=== PATIENT | male | born 1960 | race Caucasian/White ===

== ENCOUNTER 2018-11-20 07:30 | Inpatient (IN) | payer MEDICAID, OTHER ==
--- NOTE | 2018-11-07 18:31 | HP ---
HISTORY AND PHYSICAL: DATE OF ADMISSION/SURGERY: 11/20/18 DATE OF OFFICE VISIT: 11/07/18 SURGEON: Patti Harvey MD * (DICTATED BY JADON CHURCHILL) PROCEDURE: Left total hip arthroplasty. CHIEF COMPLAINT: Left hip pain. HISTORY OF PRESENT ILLNESS: Mr. Solo is a 58-year-old gentleman with continued complaints of left hip pain. He has failed conservative treatment and elected to proceed with a left total hip arthroplasty. PAST MEDICAL HISTORY: Hypertension, hepatitis C, depression, anxiety, and history of cocaine and alcohol addiction. PAST SURGICAL HISTORY: Appendectomy and left hand surgery x2. CURRENT MEDICATIONS: 1. Amlodipine 10 mg daily. 2. Trazodone 150 mg. 3. Morphine sulfate 20 mg twice a day. 4. Oxycodone 10 mg 3 times a day. 5. Naproxen 500 mg twice a day. 6. Multivitamin. ALLERGIES: No known drug allergies. FAMILY HISTORY: Cancer and cerebral hemorrhage. SOCIAL HISTORY: He is a 58-year-old gentleman, lives alone. He smokes about 2 packs of cigarettes a week as well as occasional marijuana and uses occasional alcohol. REVIEW OF SYSTEMS: A complete 14-point review of systems was reviewed with the patient. It was positive for history of hepatitis C in 2007. He denies history of DVT, PE, HIV, or anesthesia problems. PHYSICAL EXAMINATION GENERAL: He is well developed, well nourished, in no acute distress. VITAL SIGNS: He stands 68 inches tall, weighs 147 pounds. His blood pressure is 130/76 and his heart rate is 64. HEENT: Normocephalic, atraumatic. NECK: Supple. No palpable lymph nodes. PULMONARY: The lungs are clear to auscultation bilaterally. CARDIO: Regular rate and rhythm. Strong S1, S2. ABDOMEN: Soft, nontender, nondistended. NEUROLOGICAL: He is alert and oriented x3. MUSCULOSKELETAL: Left lower extremity: The skin is intact. There are no open wounds or abrasions. He walks with an antalgic-type gait favoring his left hip and has decreased internal and external rotation of the left hip. He has a 2+ dorsalis pedis pulse, intact sensation and his lower extremity muscle group strengths are intact at 5/5. ASSESSMENT AND PLAN: Mr. Solo is a 58-year-old gentleman with end-stage osteoarthritis of the left hip. He has failed conservative treatment and elected to proceed with a left total hip arthroplasty. The surgery is scheduled for 11/20/[address] Harvey discussed the risks and benefits of the surgery at today's visit and all of his questions were answered. He will follow up with Dr. Harvey 2 weeks after the surgery. JADON CHURCHILL [id number]/[facility] #: [id number] MTDPepe
[2018-11-26] MEDS ORDERED: Buffered Lidocaine 1% SYRIN* 1 ML/SYRINGE INTRADERM ONE (16:25)
[2018-11-27] MEDS ORDERED: Lactated Ringers 1000 ML Bag* 1,000 ML IV SCH (06:00)
[2018-11-27] MEDS ORDERED: Famotidine IV* 10 MG/ML 2 ML (20 mg) IV ONE (06:00)
--- OUTSIDE RECORDS SUMMARY | 2018-11-27 10:59 | XMS REPORT | Continuity of Care Document ---
:1960 External Reference #:[id number] Author Name Lidya Gunter M.D. Address [address] [facility] [address] [facility] [address] [place] [address] Care Team Providers Name Role Phone Lidya Gunter M.D. 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 Unavailable Payers Type Date Identification Numbers Payment Provider Subscriber Effective: Policy Number: [id number] Formerly [facility] Roberto Carlos Stevenserin 2018 PayID: [id number] [place] [address] Policy Number: [id number] Medicaid/[employer] Roberto Carlos Solo PayID: [id number] [address] [place] [address] Expires: 2018 Policy Number: [id number] Formerly [facility] Roberto Carlos Martinez erin PayID: [id number] [place] [address] Advance Directives Description No Information Available Problems Description No Information Family History Date Family Member(s) Problem(s) Comments Father due to At Age 50 () Father Alcoholism Father due to Cerebral Hemmorhage () Mother due to At Age 74 () Mother due to Cervical Cancer () First Son 27 First Son No Current Problems Second Son 26 Second Son No Current Problems Third Son 19 Third Son Asthma First Daughter 26 First Daughter No Current Problems Second Daughter 21 First Brother 49 First Brother No Current Problems Second Brother 52 Second Brother No Current Problems Social History Type Date Description Comments Sex Unknown Marital Status Legal Status: ETOH Use Denies alcohol use Tobacco Use Start: Unknown Patient is a current 3 TO 4 CIGARETTES A DAY smoker, smokes every day Smoking Status Reviewed: 11/13/18 Patient is a current 3 TO 4 CIGARETTES A DAY smoker, smokes every day Allergies, Adverse Reactions, Alerts Description No Known Drug Allergies Medications Medication Date Status Form Strength Qnty SIG Indications Ordering Provider Claritin 07/18/ Active Tablets 10mg 30tabs 1 by mouth J30.9 Jani, 2017 every day Lidya Del Rosario M.D. Lidocaine 11/13/ Active Cream 4% 90gm apply to M51.37 Jani, 2017 affected Lidya Del Rosario, area 3-4 M.DDelvin times daily Womens Daily 10/05/ Active Tablets 90tabs 1 by mouth E55.9 Jani Formula/Folic 2015 every day Lidya Del Rosario Acid/Calcium/Iro MLoan n Cyanocobalamin 09/06/ Active Solution 1000mcg/ML 1ml inject E53.9 Jani 2015 1000mcg Lidya Del Rosario today Luis A given to l deltoid-DR Moser Naproxen 03/27/ Active Tablets 500mg 180tab 1 tab by M54.5 Jani, 2015 s mouth Lidya Del Rosario, twice a M.D. day as needed M25.512 M15.9 Bupropion HCL 02/01/2016 Active Tablets ER 150mg 180tabs 1 by mouth F41.9 Jani, ER (SR) 12HR twice a Lidya Del Rosario, day M.D. F33.9 Trazodone HCL Active Tablets 150mg 90tabs 1 tab by F41.9 Jani, Lidya mouth every M., M.D. night F33.9 J44.9 Amlodipine Active Tablets 10mg 90tabs 1 by mouth I73.00 Jani Besylate every day Lidya Del Rosario M.D. Proair HFA Active Aerosol 108(90Bas 17gm inhale 2 J44.9 Jani e) puffs by Lidya Del Rosario, mcg/Act mouth every M.D. 4 hours if needed R06.02 Amoxicillin 01/03/ Hx Tablets 500mg 40tabs 2 by mouth J20.9 [facility], 2019 - twice a day [facility] M.D. 2019 Prednisone 10/23/ Hx Tablets 20mg 18tabs 3 tab by mouth J20.9 [facility], 2019 - daily 3 days, [facility], 11/02/ then 2 tab M.D. 2019 daily x 3 d , then 1 tab daily 3d Azithromycin 07/11/ Hx Tablets 250mg 6tabs z wesley uad J20.9 [facility], 2018 - mad ., M.D. 2018 Mucinex 07/11/ Hx Tablets ER 600mg 30tabs 1 tab by mouth J20.9 [facility], 2018 - 12HR twice a day [facility]., M.D. 2019 Azithromycin 01/03/ Hx Tablets 250mg 6tabs z [facility] J01.40 [facility], 2018 - [facility], M.D. 2017 Betamethasone 10/05/ Hx Cream 0.05% 45gm apply to L20.9 [facility], Dipropionate 2015 - affected [facility], 11/16/ area(arms and M.D. 2017 legs) three times a day as needed Diflucan 08/02/ Hx Tablets 100mg 20tabs 1 by mouth B35.6 [facility], 2015 - twice a day [facility], M.D. 2015 Lotrimin AF 08/02/ Hx Cream 1% 24gm apply to B35.6 [facility], 2015 - affected area [facility], 08/09/ three times a M.D. 2016 day Vitamin D-3 05/04/ Hx Capsules 1000Un 90caps 1 by mouth E55.9 [facility], 2015 - it every day [facility], 10/05/ M.D. 2015 Amoxicillin 04/24/ Hx Tablets 500mg 40tabs 2 by mouth H66.93 [facility], 2015 - twice a day [facility], 05/04/ M.D. 2015 Chantix 03/27/ Hx Tablets 1mg 60tabs 1 by mouth F17.21 [facility], 2016 - twice a day 0 Ahmad M., 09/20/ M.D. 2015 Vitamin D3 12/22/ Hx Capsules 1000Un 90caps 1 by mouth E55.9 Jani, 2016 - it every day Lidya M., M.D. 2015 Oxycodone HCL / Hx Tablets 10mg 120tab 1 tab by mouth M25.51 Jani , 0000 - s four times a 2 Ahmad M., M.D. 2016 M15.9 M54.5 Bupropion HCL - Hx Tablets ER 100mg 60tabs 1 by mouth F41.9 Jani, ER (SR) 02/01/2016 12HR twice a Ahmad M., M.DDelvin F33.9 Morphine - Hx Caps ER 20mg 30caps 1 tab by M54.5 Jani, Ahmad Sulfate ER 08/30/2017 24HR mouth twice MMiguel Ángel HargorveD. a day M15.9 M25.512 Diazepam - Hx Tablets 10mg 15tabs 1 tab by mouth F41.9 Jani , Ahmad 08/30/2017 twice a day as Luis A Del Rosario needed J44.9 Medications Administered in Office Medication Date Status Form Strength Qnty SIG Indications Ordering Provider B12 Administered Injection Jani, Pablo Del Rosario M.D. B12 Administered Injection Jani, Pablo Del Rosario M.D. Injection Administered Injection [place], Therap/Prophl/ 018 J[facility] Intradermal Administered Injection [place], [place] JADON Rg B12 Administered Injection Jani, 017 Lidya Del Rosario M.D. B12 Administered Injection Jani, 017 Lidya Del Rosario M.D. B12 Administered Injection Jani, Andressa Del Rosario M.D. B12 Administered Injection Jani, Andressa Del Rosario M.D. B12 Administered Injection WhiteAndressaP B12 Administered Injection Jani, 017 Lidya Del Rosario M.D. B12 Administered Injection Jani, 017 Lidya Del Rosario M.D. B12 Administered Injection White, 017 J[facility] B12 Administered Injection Jani, 017 Lidya Del Rosario M.D. B12 Administered Injection Jani, 017 Lidya Del Rosario M.D. B12 Administered Injection Jani, 017 Lidya Del Rosario M.D. B12 Administered Injection Jani, 017 Lidya Del Rosario M.D. B12 Administered Injection Jani, 017 Lidya Del Rosario M.D. B12 Administered Injection Jani, 016 Lidya Del Rosario M.D. B12 Administered Injection Jani, 016 Lidya Del Rosario M.D. B12 Administered Injection Jani, 016 Lidya Del Rosario M.D. Immunizations CPT Code Status Date Vaccine Lot # [id number] Given 07/18/2018 Flu Vaccine [id number] Given 06/18/2017 Flu Vaccine [id number] Given 08/02/2016 Flu Vaccine [id number] Given 09/20/2015 Flu Vaccine Vital Signs Date Vital Result Comment 11/13/2018 1:28pm BP Systolic 132 mmHg BP Diastolic 70 mmHg Height 69 inches 5'9" Weight 145.00 lb BMI (Body Mass Index) 21.4 kg/m2 Heart Rate 81 /min Respiratory Rate 16 /min 10/23/2018 2:55pm BP Systolic 128 mmHg BP Diastolic 62 mmHg Height 69 inches 5'9" Weight 143.00 lb BMI (Body Mass Index) 21.1 kg/m2 Heart Rate 122 /min Respiratory Rate 16 /min 09/10/2018 2:21pm BP Systolic 118 mmHg BP Diastolic 72 mmHg Height 69 inches 5'9" Weight 146.00 lb BMI (Body Mass Index) 21.6 kg/m2 Heart Rate 88 /min Respiratory Rate 16 /min 07/18/2018 9:42am BP Systolic 116 mmHg BP Diastolic 72 mmHg Height 69 inches 5'9" Weight 147.00 lb BMI (Body Mass Index) 21.7 kg/m2 Heart Rate 90 /min Body Temperature 99.1 F Respiratory Rate 22 /min 07/11/2018 1:08pm BP Systolic 120 mmHg BP Diastolic 72 mmHg Height 68 inches 5'8" Weight 148.00 lb BMI (Body Mass Index) 22.5 kg/m2 Heart Rate 98 /min Body Temperature 98.7 F Respiratory Rate 16 /min 03/31/2018 10:18am BP Systolic 144 mmHg BP Diastolic 78 mmHg Height 68 inches 5'8" Weight 147.00 lb BMI (Body Mass Index) 22.3 kg/m2 Heart Rate 105 /min Respiratory Rate 18 /min 01/16/2018 3:23pm BP Systolic 110 mmHg BP Diastolic 68 mmHg Height 68 inches 5'8" Weight 150.00 lb BMI (Body Mass Index) 22.8 kg/m2 Heart Rate 70 /min Respiratory Rate 18 /min 01/03/2018 8:06am BP Systolic 130 mmHg BP Diastolic 70 mmHg Height 68 inches 5'8" Weight 149.00 lb BMI (Body Mass Index) 22.7 kg/m2 Heart Rate 90 /min Respiratory Rate 18 /min 11/25/2017 3:25pm BP Systolic 120 mmHg BP Diastolic 62 mmHg Height 68 inches 5'8" Weight 154.00 lb BMI (Body Mass Index) 23.4 kg/m2 Heart Rate 82 /min Respiratory Rate 16 /min 11/13/2017 3:35pm BP Systolic 126 mmHg BP Diastolic 68 mmHg Height 69 inches 5'9" Weight 154.00 lb BMI (Body Mass Index) 22.7 kg/m2 Heart Rate 90 /min Respiratory Rate 18 /min 11/11/2017 3:46pm BP Systolic 110 mmHg BP Diastolic 70 mmHg Height 69 inches 5'9" Weight 154.00 lb BMI (Body Mass Index) 22.7 kg/m2 Heart Rate 73 /min Respiratory Rate 18 /min 08/30/2017 9:11am BP Systolic 110 mmHg BP Diastolic 72 mmHg Height 69 inches 5'9" Weight 161.00 lb BMI (Body Mass Index) 23.8 kg/m2 Heart Rate 105 /min Respiratory Rate 18 /min 08/16/2017 8:58am BP Systolic 128 mmHg BP Diastolic 72 mmHg Height 69 inches 5'9" Weight 158.00 lb BMI (Body Mass Index) 23.3 kg/m2 Heart Rate 93 /min Respiratory Rate 16 /min 08/02/2017 8:58am BP Systolic 110 mmHg BP Diastolic 68 mmHg Height 69 inches 5'9" Weight 157.00 lb BMI (Body Mass Index) 23.2 kg/m2 Heart Rate 18 /min Respiratory Rate 16 /min 07/19/2017 9:26am Height 69 inches 5'9" Weight 157.00 lb BMI (Body Mass Index) 23.2 kg/m2 07/16/2017 8:52am BP Systolic 110 mmHg BP Diastolic 62 mmHg Height 69 inches 5'9" Weight 158.00 lb BMI (Body Mass Index) 23.3 kg/m2 Heart Rate 95 /min Respiratory Rate 16 /min 07/05/2017 9:36am BP Systolic 122 mmHg BP Diastolic 78 mmHg Height 69 inches 5'9" Weight 160.00 lb BMI (Body Mass Index) 23.6 kg/m2 Heart Rate 110 /min Respiratory Rate 18 /min 06/18/2017 10:02am BP Systolic 126 mmHg BP Diastolic 74 mmHg Height 69 inches 5'9" Weight 161.00 lb BMI (Body Mass Index) 23.8 kg/m2 Heart Rate 80 /min Respiratory Rate 16 /min 05/30/2017 9:53am BP Systolic 124 mmHg BP Diastolic 78 mmHg Height 69 inches 5'9" Weight 162.00 lb BMI (Body Mass Index) 23.9 kg/m2 Heart Rate 75 /min Respiratory Rate 18 /min 05/16/2017 9:11am BP Systolic 122 mmHg BP Diastolic 64 mmHg Height 69 inches 5'9" Weight 160.00 lb BMI (Body Mass Index) 23.6 kg/m2 Heart Rate 80 /min Respiratory Rate 16 /min 05/03/2017 9:20am BP Systolic 124 mmHg BP Diastolic 64 mmHg Height 69 inches 5'9" Weight 164.00 lb BMI (Body Mass Index) 24.2 kg/m2 Heart Rate 84 /min Respiratory Rate 16 /min 04/19/2017 9:36am BP Systolic 118 mmHg BP Diastolic 62 mmHg Height 69 inches 5'9" Weight 161.00 lb BMI (Body Mass Index) 23.8 kg/m2 Heart Rate 68 /min Respiratory Rate 16 /min 04/05/2017 9:20am BP Systolic 130 mmHg BP Diastolic 70 mmHg Height 69 inches 5'9" Weight 160.00 lb BMI (Body Mass Index) 23.6 kg/m2 Heart Rate 76 /min Respiratory Rate 16 /min 03/06/2017 9:04am BP Systolic 122 mmHg BP Diastolic 68 mmHg Height 69 inches 5'9" Weight 160.00 lb BMI (Body Mass Index) 23.6 kg/m2 Heart Rate 102 /min Respiratory Rate 16 /min 02/04/2017 9:05am BP Systolic 118 mmHg BP Diastolic 76 mmHg Height 69 inches 5'9" Weight 157.00 lb BMI (Body Mass Index) 23.2 kg/m2 Heart Rate 68 /min Respiratory Rate 18 /min 01/03/2017 9:40am BP Systolic 118 mmHg BP Diastolic 78 mmHg Height 69 inches 5'9" Weight 162.00 lb BMI (Body Mass Index) 23.9 kg/m2 Heart Rate 91 /min Respiratory Rate 16 /min 12/06/2016 2:34pm BP Systolic 124 mmHg BP Diastolic 80 mmHg Height 69 inches 5'9" Weight 159.00 lb BMI (Body Mass Index) 23.5 kg/m2 Heart Rate 80 /min Respiratory Rate 16 /min 11/06/2016 11:31am BP Systolic 128 mmHg BP Diastolic 80 mmHg Height 69 inches 5'9" Weight 152.00 lb BMI (Body Mass Index) 22.4 kg/m2 Heart Rate 102 /min Respiratory Rate 16 /min 10/05/2016 8:57am BP Systolic 122 mmHg BP Diastolic 88 mmHg Height 69 inches 5'9" Weight 160.00 lb BMI (Body Mass Index) 23.6 kg/m2 Heart Rate 73 /min Respiratory Rate 20 /min 09/06/2016 11:28am BP Systolic 124 mmHg BP Diastolic 68 mmHg Height 69 inches 5'9" Weight 152.00 lb BMI (Body Mass Index) 22.4 kg/m2 Heart Rate 78 /min Respiratory Rate 16 /min 08/10/2016 9:40am BP Systolic 112 mmHg BP Diastolic 67 mmHg Height 69 inches 5'9" Weight 145.00 lb BMI (Body Mass Index) 21.4 kg/m2 Heart Rate 76 /min Respiratory Rate 20 /min 08/03/2016 9:16am BP Systolic 116 mmHg BP Diastolic 68 mmHg Height 69 inches 5'9" Weight 148.00 lb BMI (Body Mass Index) 21.9 kg/m2 Heart Rate 72 /min Respiratory Rate 18 /min 08/02/2016 11:34am BP Systolic 122 mmHg BP Diastolic 68 mmHg Height 69 inches 5'9" Weight 147.00 lb BMI (Body Mass Index) 21.7 kg/m2 Heart Rate 72 /min Respiratory Rate 20 /min 05/15/2016 2:42pm BP Systolic 116 mmHg BP Diastolic 62 mmHg Height 69 inches 5'9" Weight 143.00 lb BMI (Body Mass Index) 21.1 kg/m2 Heart Rate 78 /min Respiratory Rate 20 /min 04/24/2016 9:49am BP Systolic 118 mmHg BP Diastolic 64 mmHg Height 69 inches 5'9" Weight 143.00 lb BMI (Body Mass Index) 21.1 kg/m2 Heart Rate 78 /min Respiratory Rate 18 /min 04/11/2016 9:46am BP Systolic 112 mmHg BP Diastolic 72 mmHg Height 69 inches 5'9" Weight 143.00 lb BMI (Body Mass Index) 21.1 kg/m2 Heart Rate 72 /min Respiratory Rate 19 /min 03/27/2016 11:33am BP Systolic 110 mmHg BP Diastolic 62 mmHg Height 69 inches 5'9" Weight 142.00 lb BMI (Body Mass Index) 21.0 kg/m2 Heart Rate 80 /min Respiratory Rate 19 /min 03/13/2016 2:40pm BP Systolic 116 mmHg BP Diastolic 74 mmHg Height 69 inches 5'9" Weight 148.00 lb BMI (Body Mass Index) 21.9 kg/m2 Heart Rate 78 /min Respiratory Rate 18 /min 02/01/2016 2:20pm BP Systolic 122 mmHg BP Diastolic 83 mmHg Height 69 inches 5'9" Weight 154.00 lb BMI (Body Mass Index) 22.7 kg/m2 Heart Rate 111 /min Respiratory Rate 18 /min 12/23/2015 10:38am BP Systolic 108 mmHg BP Diastolic 77 mmHg Height 69 inches 5'9" Weight 146.00 lb BMI (Body Mass Index) 21.6 kg/m2 Heart Rate 86 /min Respiratory Rate 18 /min 12/16/2015 9:43am BP Systolic 114 mmHg BP Diastolic 78 mmHg Height 69 inches 5'9" Weight 148.00 lb BMI (Body Mass Index) 21.9 kg/m2 Heart Rate 80 /min Body Temperature 97.5 F Respiratory Rate 18 /min Results Test Date Facility Test Result H/L Range Note Hemoglobin A1c 07/18/2018 [facility] Hemoglobin A1c @ 4.9 % (4.0-6.0) 1 [address] [facility] (607)- - Est Average Glucose 94 mg/dL CBC With Diff 07/18/2018 [facility] WBC 5.3 10*3/uL (4.1-11.0) [facility] (607)- - RBC 4.60 10*6/uL (4.60-6.10) HGB 14.9 g/dL (13.5-18.0) HCT 43.9 % (41.0-53.0) MCV 95.4 fL High (80.0-95.0) MCH 32.5 pg High (27.0-32.0) MCHC 34.0 g/dL (32.0-36.0) RDW 13.2 % (10.5-14.5) PLT UNABLE TO REPORT <SEE NOTE> 10*3/uL (150-450) 2 MPV PENDING fL (7.1-10.7) Neut % 68.0 % (35.0-75.0) Lymph % 22.0 % (16.0-52.0) [place] % 7.0 % (0.0-8.0) Eos % 2.0 % (0.0-5.0) Baso % 1.0 % (0.0-4.0) Neut # 3.6 10*3/uL (1.8-7.7) Lymph # 1.2 10*3/uL (1.2-4.8) [place] # 0.4 10*3/uL (0.0-0.8) Eos # 0.1 10*3/uL (0.0-0.5) Baso # 0.1 10*3/uL (0.0-0.2) CMP 07/18/2018 [facility] Sodium 143 mmol/L (136-145) [facility] (607)- - Potassium 4.2 mmol/L (3.6-5.2) Chloride 108 mmol/L (100-108) Co2 30 mmol/L (22-31) Anion Gap 5 mmol/L Low (7-16) Urea Nitrogen 14 mg/dL (7-24) Creatinine 0.80 mg/dL (0.80-1.30) BUN/Creat Ratio 17.5 RATIO (10.0-20.0) Glucose 94 mg/dL (70-99) Calcium 9.1 mg/dL (8.4-10.2) Total Protein 6.7 g/dL (6.4-8.2) Albumin 4.0 g/dL (3.5-4.6) Globulin 2.7 g/dL (2.7-4.3) Alb/Glob Ratio 1.5 RATIO Alkaline Phosphatase 97 U/L (45-117) Bilirubin,Total 0.7 mg/dL (0.0-1.0) Ast (Sgot) 25 U/L (11-39) Alt (SGPT) 30 U/L (12-78) GFR >60 ml/min/1.73m2 (>59) GFR ( Amer) >60 ml/min/1.73m2 (>59) GFR Interpretation <SEE NOTE> 3 Lipid 07/18/2018 [facility] Cholesterol @ 115 mg/dL (0-200) [address] [facility] (607)- - Triglyceride @ 66 mg/dL (30-200) HDL Cholesterol @ 69 mg/dL (>40) 4 Chol/HDL Ratio 1.7 RATIO 5 LDL Chol (Calc) 33 mg/dL (<130) 6 Laboratory 07/18/2018 [facility] TSH,Ultrasensitive @ 0.377 (0.360- 4.170) test finding [address] [facility] mIU/L (607)- - 25 Hydroxy Vit D @ 51 ng/mL (31-100) 7 Hepatitis C AB @ POSITIVE (S/CO R <SEE NOTE> Abnormal (Neg) 8 Laboratory test 01/03/2018 [facility] TSH (Thyroid 0.66 mcIU/mL N 0.34-5.60 9 finding Stim Horm) Hepatitis C Rna Quant Undetected IU/mL Undetected 10 Vitamin D Total 25(Oh) 41.9 ng/mL N 20-50 11 Free T4 (Free Thyroxine) 1.08 ng/dL N 0.61-1.12 12 Hemoglobin A1c (Glyco HGB) 5.0 % N 4.0-5.6 13 Vitamin B12 318 pg/mL N 180-914 14 Folic Acid (Folate) > 20.00 ng/mL >3.99 15 Lipid Profile (Trig/Chol/HDL) 01/03/2018 [facility] Triglycerides 62 mg /dL 16 Cholesterol 122 mg/dL 17 HDL Cholesterol 58.2 mg/dL 18 LDL Cholesterol 51 mg/dL 19 Comp Metabolic Panel 01/03/2018 [facility] Sodium 139 mmol/L N 133- 145 Potassium 4.6 mmol/L N 3.5-5.0 Chloride 104 mmol/L N 101-111 Co2 Carbon Dioxide 26 mmol/L N 22-32 Anion Gap 9 mmol/L N 2-11 Glucose 85 mg/dL N 70-100 Blood Urea Nitrogen 18 mg/dL N 6-24 Creatinine 0.87 mg/dL N 0.67-1.17 BUN/Creatinine Ratio 20.7 High 8-20 Calcium 9.6 mg/dL N 8.6-10.3 Total Protein 6.7 g/dL N 6.4-8.9 Albumin 4.5 g/dL N 3.2-5.2 Globulin 2.2 g/dL N 2-4 Albumin/Globulin Ratio 2.0 N 1-3 Total Bilirubin 0.60 mg/dL N 0.2-1.0 Alkaline Phosphatase 79 U/L N 34-104 Alt 21 U/L N 7-52 Ast 22 U/L N 13-39 Egfr Non- 91.1 >60 Egfr 117.2 >60 20 CBC Auto Diff 01/03/2018 [facility] White Blood Count 8.2 10^3/uL N 3.5-10.8 Red Blood Count 4.72 10^6/uL N 4.0-5.4 Hemoglobin 14.9 g/dL N 14.0-18.0 Hematocrit 45 % N 42-52 Mean Corpuscular Volume 96 fL High 80-94 Mean Corpuscular Hemoglobin 32 pg High 27-31 Mean Corpuscular HGB Conc 33 g/dL N 31-36 Red Cell Distribution Width 13 % N 10.5-15 Platelet Count 210 10^3/uL N 150-450 Mean Platelet Volume 9 um3 N 7.4-10.4 Abs Neutrophils 6.2 10^3/uL N 1.5-7.7 Abs Lymphocytes 1.1 10^3/uL N 1.0-4.8 Abs Monocytes 0.8 10^3/uL N 0-0.8 Abs Eosinophils 0.1 10^3/uL N 0-0.6 Abs Basophils 0 10^3/uL N 0-0.2 Abs Nucleated RBC 0 10^3/uL Granulocyte % 75.5 % N 38-83 Lymphocyte % 13.2 % Low 25-47 Monocyte % 9.2 % High 0-7 Eosinophil % 1.5 % N 0-6 Basophil % 0.6 % N 0-2 Nucleated Red Blood Cells % 0 Laboratory test 07/05/2017 [facility] Vitamin D Total 48.7 ng/mL N 20 -50 21 finding 25(Oh) TSH (Thyroid Stim Horm) 0.61 mcIU/mL N 0.34-5.60 22 Free T4 (Free Thyroxine) 1.23 ng/dL High 0.61-1.12 23 Hemoglobin A1c (Glyco HGB) 4.9 % N Less than 6.0 24 Vitamin B12 984 pg/mL High 180-914 25 Folic Acid (Folate) > 20.00 ng/mL N >3.99 26 Lipid Profile 07/05/2017 [facility] Triglycerides 103 mg/dL N 27 (Trig/Chol/HDL) Cholesterol 120 mg/dL N 28 HDL Cholesterol 55.5 mg/dL N 29 LDL Cholesterol 44 mg/dL N 30 Comp Metabolic Panel 07/05/2017 [facility] Sodium 138 mmol/L N 133- 145 Potassium 3.5 mmol/L N 3.5-5.0 Chloride 106 mmol/L N 101-111 Co2 Carbon Dioxide 27 mmol/L N 22-32 Anion Gap 5 mmol/L N 2-11 Glucose 144 mg/dL High 70-100 Blood Urea Nitrogen 12 mg/dL N 6-24 Creatinine 0.78 mg/dL N 0.67-1.17 BUN/Creatinine Ratio 15.4 N 8-20 Calcium 9.3 mg/dL N 8.6-10.3 Total Protein 6.4 g/dL N 6.4-8.9 Albumin 4.2 g/dL N 3.2-5.2 Globulin 2.2 g/dL N 2-4 Albumin/Globulin Ratio 1.9 N 1-3 Total Bilirubin 0.50 mg/dL N 0.2-1.0 Alkaline Phosphatase 66 U/L N 34-104 Alt 19 U/L N 7-52 Ast 23 U/L N 13-39 Egfr Non- 103.7 N >60 Egfr 133.4 N >60 31 CBC Auto Diff 07/05/2017 [facility] White Blood Count 5.8 10^3/uL N 3.5-10.8 Red Blood Count 4.64 10^6/uL N 4.0-5.4 Hemoglobin 14.6 g/dL N 14.0-18.0 Hematocrit 44 % N 42-52 Mean Corpuscular Volume 94 fL N 80-94 Mean Corpuscular Hemoglobin 31 pg N 27-31 Mean Corpuscular HGB Conc 34 g/dL N 31-36 Red Cell Distribution Width 14 % N 10.5-15 Platelet Count 201 10^3/uL N 150-450 Mean Platelet Volume 9 um3 N 7.4-10.4 Abs Neutrophils 3.7 10^3/uL N 1.5-7.7 Abs Lymphocytes 1.4 10^3/uL N 1.0-4.8 Abs Monocytes 0.5 10^3/uL N 0-0.8 Abs Eosinophils 0.1 10^3/uL N 0-0.6 Abs Basophils 0 10^3/uL N 0-0.2 Abs Nucleated RBC 0 10^3/uL N Granulocyte % 64.6 % N 38-83 Lymphocyte % 24.5 % Low 25-47 Monocyte % 9.1 % High 1-9 Eosinophil % 1.3 % N 0-6 Basophil % 0.5 % N 0-2 Nucleated Red Blood Cells % 0.1 N CBC Auto Diff 01/03/2017 [facility] White Blood Count 8.0 10^3/uL N 3.5-10.8 Red Blood Count 4.84 10^6/uL N 4.0-5.4 Hemoglobin 15.2 g/dL N 14.0-18.0 Hematocrit 45 % N 42-52 Mean Corpuscular Volume 94 fL N 80-94 Mean Corpuscular Hemoglobin 31 pg N 27-31 Mean Corpuscular HGB Conc 33 g/dL N 31-36 Red Cell Distribution Width 14 % N 10.5-15 Platelet Count 204 10^3/uL N 150-450 Mean Platelet Volume 9 um3 N 7.4-10.4 Abs Neutrophils 5.9 10^3/uL N 1.5-7.7 Abs Lymphocytes 1.4 10^3/uL N 1.0-4.8 Abs Monocytes 0.6 10^3/uL N 0-0.8 Abs Eosinophils 0.1 10^3/uL N 0-0.6 Abs Basophils 0 10^3/uL N 0-0.2 Abs Nucleated RBC 0 10^3/uL N Granulocyte % 73.3 % N 38-83 Lymphocyte % 17.8 % Low 25-47 Monocyte % 7.4 % N 1-9 Eosinophil % 0.9 % N 0-6 Basophil % 0.6 % N 0-2 Nucleated Red Blood Cells % 0 N Comp Metabolic Panel 01/03/2017 [facility] Sodium 139 mmol/L N 133- 145 Potassium 4.0 mmol/L N 3.5-5.0 Chloride 99 mmol/L Low 101-111 Co2 Carbon Dioxide 28 mmol/L N 22-32 Anion Gap 12 mmol/L High 2-11 Glucose 105 mg/dL High 70-100 Blood Urea Nitrogen 12 mg/dL N 6-24 Creatinine 0.77 mg/dL N 0.67-1.17 BUN/Creatinine Ratio 15.6 N 8-20 Calcium 9.5 mg/dL N 8.6-10.3 Total Protein 6.9 g/dL N 6.4-8.9 Albumin 4.6 g/dL N 3.2-5.2 Globulin 2.3 g/dL N 2-4 Albumin/Globulin Ratio 2.0 N 1-3 Total Bilirubin 0.80 mg/dL N 0.2-1.0 Alkaline Phosphatase 80 U/L N 34-104 Alt 19 U/L N 7-52 Ast 25 U/L N 13-39 Egfr Non- 105.3 N >60 Egfr 135.4 N >60 32 Lipid Profile 01/03/2017 [facility] Triglycerides 113 mg/dL N 33 (Trig/Chol/HDL) Cholesterol 142 mg/dL N 34 HDL Cholesterol 58.1 mg/dL N 35 LDL Cholesterol 61 mg/dL N 36 Laboratory test 01/03/2017 [facility] TSH (Thyroid 0.52 mcIU/mL N 0.34-5.60 37 finding Stim Horm) Vitamin D Total 25(Oh) 38.4 ng/mL N 30-50 38 Laboratory test 08/03/2016 [facility] Erythrocyte Sed 3 mm/Hr N 0-20 39 finding Rate CBC Auto Diff 08/03/2016 [facility] White Blood Count 5.9 10^3/uL N 3.5-10.8 Red Blood Count 4.94 10^6/uL N 4.0-5.4 Hemoglobin 14.9 g/dL N 14.0-18.0 Hematocrit 45 % N 42-52 Mean Corpuscular Volume 92 fL N 80-94 Mean Corpuscular Hemoglobin 30 pg N 27-31 Mean Corpuscular HGB Conc 33 g/dL N 31-36 Red Cell Distribution Width 15 % N 10.5-15 Platelet Count 210 10^3/uL N 150-450 Mean Platelet Volume 9 um3 N 7.4-10.4 Abs Neutrophils 3.9 10^3/uL N 1.5-7.7 Abs Lymphocytes 1.3 10^3/uL N 1.0-4.8 Abs Monocytes 0.6 10^3/uL N 0-0.8 Abs Eosinophils 0.1 10^3/uL N 0-0.6 Abs Basophils 0 10^3/uL N 0-0.2 Abs Nucleated RBC 0 10^3/uL N Granulocyte % 66.1 % N 38-83 Lymphocyte % 22.4 % Low 25-47 Monocyte % 9.6 % High 1-9 Eosinophil % 1.2 % N 0-6 Basophil % 0.7 % N 0-2 Nucleated Red Blood Cells % 0 N Comp Metabolic Panel 08/03/2016 [facility] Sodium 137 mmol/L N 133- 145 Potassium 4.1 mmol/L N 3.5-5.0 Chloride 103 mmol/L N 101-111 Co2 Carbon Dioxide 29 mmol/L N 22-32 Anion Gap 5 mmol/L N 2-11 Glucose 92 mg/dL N 70-100 Blood Urea Nitrogen 11 mg/dL N 6-24 Creatinine 0.85 mg/dL N 0.67-1.17 BUN/Creatinine Ratio 12.9 N 8-20 Calcium 9.6 mg/dL N 8.6-10.3 Total Protein 6.6 g/dL N 6.4-8.9 Albumin 4.4 g/dL N 3.2-5.2 Globulin 2.2 g/dL N 2-4 Albumin/Globulin Ratio 2.0 N 1-3 Total Bilirubin 0.40 mg/dL N 0.2-1.0 Alkaline Phosphatase 76 U/L N 34-104 Alt 17 U/L N 7-52 Ast 26 U/L N 13-39 Egfr Non- 94.3 N >60 Egfr 121.3 N >60 40 Lipid Profile (Trig/Chol/HDL) 08/03/2016 [facility] Triglycerides 70 mg /dL N 41 Cholesterol 133 mg/dL N 42 HDL Cholesterol 58.4 mg/dL N 43 LDL Cholesterol 61 mg/dL N 44 Laboratory test 08/03/2016 [facility] Rheumatoid Factor <15 IU/mL N < 15 45 finding Connective Tissue 08/03/2016 [facility] Anti-Nuclear 0.6 U N 46 Panel Antibody Cyclic Citrullinated Peptide <15.6 U N 47 Interpretation See Comment N 48 Laboratory test 08/03/2016 [facility] TSH (Thyroid 1.06 mcIU/mL N 0.34-5.60 49 finding Stim Horm) PSA Diagnostic 0.923 ng/mL N 0-4.000 50 Laboratory test 03/27/2016 [facility] TSH (Thyroid 0.39 ?IU/mL N 0.34 -5.60 51 finding Stim Horm) Free T4 (Free Thyroxine) 1.10 ng/dL N 0.61-1.12 52 Vitamin D Total 25(Oh) 41.4 ng/mL N 30-50 53 Fentanyl, 12/16/2015 [facility] Fentanyl/Norfentanyl Negative Cutoff= 2000 54, Urine 55 Oxycodone/O 12/16/2015 [facility] Oxycodone/Oxymorph Positive Abnormal Aigyex=568 56 xymorphone, Urine Oxycodone Positive Abnormal Oxycodone Confirm >3000 ng/mL Sxmkes=176 57 Oxymorphone Positive Abnormal Oxymorphone Confirm 898 ng/mL Xbgbsx=602 58 Laboratory test 12/16/2015 [facility] Please note See Comment: 59 finding Urine Opiate 12/16/2015 [facility] Opiates Positive ng/mL Abnormal Cutoff = 60 Screen 100 Codeine Negative Morphine Positive Abnormal Morphine Confirm >3000 ng/mL Xixzfv=221 61 Hydromorphone Positive Abnormal Hydromorphone Confirm 252 ng/mL Efkekp=895 62 Hydrocodone Negative Benzodiazepines 12/16/2015 [facility] Benzodiazepines Positive Abnormal Gancii=619 Screen,Urine ng/mL Nordiazepam Negative Oxazepam Positive Abnormal Oxazepam Confirm 830 ng/mL Boujyo=561 63 Flurazepam Negative Lorazepam Negative Alprazolam Negative Clonazepam Negative Temazepam Positive Abnormal Temazepam Confirm 228 ng/mL Agxfkf=611 64 Triazolam Negative Midazolam Negative Monitor 12/16/2015 [facility] Amphetamine Negative ng/mL Jxfdxt=2165 14-Drug Class Screen, Urine Profile (MW) Barbiturates Screen, Urine Negative ng/mL Joqpnf=353 Benzodiazepines Screen, Urine See Final Result <SEE NOTE> ng/mL Bniphk=014 65 Cannabinoid Screen, Urine Negative ng/mL Cutoff=20 Cocaine (Metab.) Screen, Urine Negative ng/mL Ugvryn=023 Opiate Screen, Urine See Final Result <SEE NOTE> ng/mL Boakfk=125 66 Phencyclidine Screen, Urine Negative ng/mL Cutoff=25 Methadone Screen, Urine Negative ng/mL Ylohjb=295 Propoxyphene Screen, Urine Negative ng/mL Kfhsyz=831 Meperidine Screen, Urine Negative ng/mL Qnirwu=038 67 Tramadol Screen, Urine Negative ng/mL Lalvyw=511 Buprenorphine, Urine Negative ng/mL Cutoff=10 Creatinine, Urine 201.1 mg/dL 20.0-300.0 Specific [place] 1.022 pH, Urine 5.2 4.5-8.9 Please Note: See Comment: 68 Oxycodone/Oxymorphone, Urine See Final Result <SEE NOTE> ng/mL Gsthfi=978 69 Fentanyl, Urine See Final Result <SEE NOTE> pg/mL Ynpcqe=1665 70 Laboratory test 12/16/2015 [facility] TSH (Thyroid 0.23 ?IU/mL Low 0.34-5.60 finding Stim Horm) Free T4 (Free Thyroxine) 1.09 ng/dL N 0.61-1.12 PSA Screening 0.727 ng/mL N 0-4.000 71 Vitamin D Total 25(Oh) 18.8 ng/mL Low 30-50 Lipid Profile (Trig/Chol/HDL) 12/16/2015 [facility] Triglycerides 85 mg /dL N 72 Cholesterol 115 mg/dL N 73 HDL Cholesterol 41.2 mg/dL N 74 LDL Cholesterol 57 mg/dL N 75 Laboratory test 12/16/2015 [facility] CRP High Sensitivity 0.62 mg/L N 76 finding Hemoglobin A1c (Glyco HGB) 5.0 % N Less than 6.0 77 Comp Metabolic Panel 12/16/2015 [facility] Sodium 138 mmol/L N 133- 145 Potassium 4.4 mmol/L N 3.5-5.0 Chloride 104 mmol/L N 101-111 Co2 Carbon Dioxide 30 mmol/L N 22-32 Anion Gap 4 mmol/L N 2-11 Glucose 96 mg/dL N 70-100 Blood Urea Nitrogen 11 mg/dL N 6-24 Creatinine 0.90 mg/dL N 0.67-1.17 BUN/Creatinine Ratio 12.2 N 8-20 Calcium 9.6 mg/dL N 8.6-10.3 Total Protein 6.5 g/dL N 6.4-8.9 Albumin 4.4 g/dL N 3.2-5.2 Globulin 2.1 g/dL N 2-4 Albumin/Globulin Ratio 2.1 N 1-3 Total Bilirubin 0.70 mg/dL N 0.2-1.0 Alkaline Phosphatase 78 U/L N 34-104 Alt 12 U/L N 7-52 Ast 16 U/L N 13-39 Egfr Non- 88.3 N >60 Egfr 113.5 N >60 78 CBC Auto Diff 12/16/2015 [facility] White Blood Count 6.0 10^3/uL N 3.5-10.8 Red Blood Count 4.90 10^6/uL N 4.0-5.4 Hemoglobin 14.6 g/dL N 14.0-18.0 Hematocrit 44 % N 42-52 Mean Corpuscular Volume 90 fL N 80-94 Mean Corpuscular Hemoglobin 30 pg N 27-31 Mean Corpuscular HGB Conc 33 g/dL N 31-36 Red Cell Distribution Width 15 % N 10.5-15 Platelet Count 185 10^3/uL N 150-450 Mean Platelet Volume 9 um3 N 7.4-10.4 Abs Neutrophils 4.3 10^3/uL N 1.5-7.7 Abs Lymphocytes 1.1 10^3/uL N 1.0-4.8 Abs Monocytes 0.4 10^3/uL N 0-0.8 Abs Eosinophils 0.1 10^3/uL N 0-0.6 Abs Basophils 0 10^3/uL N 0-0.2 Abs Nucleated RBC 0 10^3/uL N Granulocyte % 72.5 % N 38-83 Lymphocyte % 18.7 % Low 25-47 Monocyte % 6.8 % N 1-9 Eosinophil % 1.4 % N 0-6 Basophil % 0.6 % N 0-2 Nucleated Red Blood Cells % 0 N 1 Performed using Siemens Genoom immunoassay. Care must be taken when interpreting HbA1c results in patients with a hemoglobin variant or decreased erythrocyte lifespan. Values 5.7 - 6.4% suggest prediabetes. Values >=6.5% are diagnostic for diabetes. REFERENCE: DIABETES CARE 2018: 41(S13-S27). 2 UNABLE TO REPORT PLT CT DUE TO CLUMPING 3 NORMAL KIDNEY FUNCTION OR MILD DISEASE - GFR >OR=60 CHRONIC KIDNEY DISEASE - GFR 15 - 59 RENAL FAILURE - GFR <15 Est. GFR calculation based on the MDRD study equation, which assumes a steady state for creatinine. Est. GFR should not be used for medication dosing. 4 PER NCEP ATP III GUIDELINES: RESULTS LOWER THAN 40 MG/DL ARE SUGGESTIVE OF INCREASED RISK FOR CORONARY ARTERY DISEASE. RESULTS > OR=TO 60 MG/DL ARE CONSIDERED A NEGATIVE RISK FACTOR. 5 INTERPRETATION OF CHOL-HDL RATIO CHD RISK FEMALE MALE VERY HIGH >8.3 >14.3 HIGH 5.6- 8.3 6.7- 14.3 AVERAGE 3.7- 5.6 4.0- 6.7 BELOW AVERAGE 2.5- 3.7 2.7- 4.0 PROTECTED <2.5 <2.7 6 PER NCEP ATP III GUIDELINES: OPTIMAL < 100 NEAR OPTIMAL 100 - 129 BORDERLINE HIGH 130 - 159 HIGH 160 - 189 VERY HIGH > 189 7 A REVIEW OF THE LITERATURE SUGGESTS THE FOLLOWING RANGES FOR THE CLASSIFICATION OF 25-OH VITAMIN D STATUS: VITAMIN D STATUS 25-OH VITAMIN D DEFICIENCY <20 NG/ML INSUFFICIENCY 20-30 NG/ML SUFFICIENCY 31 - 100 NG/ML TOXICITY > 100 NG/ML A PEDIATRIC REFERENCE RANGE HAS NOT BEEN ESTABLISHED USING THIS METHOD. 8 POSITIVE (S/CO RATIO > OR=11.0) SEE NOTE PROBABLY INDICATES PAST OR PRESENT HCV INFECTION. IF INDICATED, HCV QUANTITATIVE RNA SHOULD BE REQUESTED. New Assay in use 06/09/18. 9 [id number] 10 Result in log IU/mL is Undetected. ADDITIONAL INFORMATION The quantification range of this assay is 15 to 100,000,000 IU/mL (1.18 log to 8.00 log IU/mL). Testing was performed using the carmel HCV test ([employer] with the carmel 6800 System. Test Performed by: [facility] [address] [place] [address] 11 [id number] 13 Therapeutic target for the treatment of diabetes mellitus patients is <7% HBA1C, and in selective patients <6.0%. Please refer to [place] [employer] diabetic care guidelines for further information. 14 Normal Range 180 to 914 Indeterminate Range 145 to 180 Deficient Range <145 15 [id number] 16 Desirable: <150 Borderline High: 150-199 High: 200-499 Very High: >500 17 Desirable: <200 Borderline High: 200-239 High: >239 18 Low: <40 Desirable: 40-60 High: >60 19 Desirable: <100 Near Optimal: 100-129 Borderline High: 130-159 High: 160-189 Very High: >189 20 Because ethnic data is not always readily available, this report includes an eGFR for both -Americans and non- Americans. The National Kidney Disease Education Program (NKDEP) does not endorse the use of the MDRD equation for patients that are not between the ages of 18 and 70, are , have extremes of body size, muscle mass, or nutritional status, or are non- or non-. According to the National Kidney Foundation, irrespective of diagnosis, the stage of the disease is based on the level of kidney function: Stage Description GFR(mL/min/1.73 m(2)) 1 Kidney damage with normal or decreased GFR 90 2 Kidney damage with mild decrease in GFR 60-89 3 Moderate decrease in GFR 30-59 4 Severe decrease in GFR 15-29 5 Kidney failure <15 (or dialysis) 21 [id number] 22 [id number] 23 [id number] 24 Therapeutic target for the treatment of diabetes Mellitus patients is <7% HBA1C, and in selective patients <6.0%.Please refer to [place] [employer] Diabetic care guidelines for further information. 25 Normal Range 180 to 914 Indeterminate Range 145 to 180 Deficient Range <145 26 [id number] 27 Desirable <150 Borderline high 150-199 High 200-499 Very High >500 28 Desirable <200 Borderline high 200-239 High >239 29 Low <40 Desirable: 40-60 High: >60 30 Desirable: <100 mg/dL Near Optimal: 100-129 mg/dL Borderline High: 130-159 mg/dL High: 160-189 mg/dL Very High: >189 mg/dL 31 Because ethnic data is not always readily available, this report includes an eGFR for both -Americans and non- Americans. The National Kidney Disease Education Program (NKDEP) does not endorse the use of the MDRD equation for patients that are not between the ages of 18 and 70, are , have extremes of body size, muscle mass, or nutritional status, or are non- or non-. According to the National Kidney Foundation, irrespective of diagnosis, the stage of the disease is based on the level of kidney function: Stage Description GFR(mL/min/1.73 m(2)) 1 Kidney damage with normal or decreased GFR 90 2 Kidney damage with mild decrease in GFR 60-89 3 Moderate decrease in GFR 30-59 4 Severe decrease in GFR 15-29 5 Kidney failure <15 (or dialysis) 32 Because ethnic data is not always readily available, this report includes an eGFR for both -Americans and non- Americans. The National Kidney Disease Education Program (NKDEP) does not endorse the use of the MDRD equation for patients that are not between the ages of 18 and 70, are , have extremes of body size, muscle mass, or nutritional status, or are non- or non-. According to the National Kidney Foundation, irrespective of diagnosis, the stage of the disease is based on the level of kidney function: Stage Description GFR(mL/min/1.73 m(2)) 1 Kidney damage with normal or decreased GFR 90 2 Kidney damage with mild decrease in GFR 60-89 3 Moderate decrease in GFR 30-59 4 Severe decrease in GFR 15-29 5 Kidney failure <15 (or dialysis) 33 Desirable <150 Borderline high 150-199 High 200-499 Very High >500 34 Desirable <200 Borderline high 200-239 High >239 35 Low <40 Desirable: 40-60 High: >60 36 Desirable: <100 mg/dL Near Optimal: 100-129 mg/dL Borderline High: 130-159 mg/dL High: 160-189 mg/dL Very High: >189 mg/dL 37 [id number] 39 [id number] 40 Because ethnic data is not always readily available, this report includes an eGFR for both -Americans and non- Americans. The National Kidney Disease Education Program (NKDEP) does not endorse the use of the MDRD equation for patients that are not between the ages of 18 and 70, are , have extremes of body size, muscle mass, or nutritional status, or are non- or non-. According to the National Kidney Foundation, irrespective of diagnosis, the stage of the disease is based on the level of kidney function: Stage Description GFR(mL/min/1.73 m(2)) 1 Kidney damage with normal or decreased GFR 90 2 Kidney damage with mild decrease in GFR 60-89 3 Moderate decrease in GFR 30-59 4 Severe decrease in GFR 15-29 5 Kidney failure <15 (or dialysis) 41 Desirable <150 Borderline high 150-199 High 200-499 Very High >500 42 Desirable <200 Borderline high 200-239 High >239 43 Low <40 Desirable: 40-60 High: >60 44 Desirable: <100 mg/dL Near Optimal: 100-129 mg/dL Borderline High: 130-159 mg/dL High: 160-189 mg/dL Very High: >189 mg/dL 45 Test Performed by: [address] [address] [employer] Machine Tender: Weston Keith II, M.D., Ph.D. 46 REFERENCE VALUE <=1.0 (Negative) 47 REFERENCE VALUE <20.0 (Negative) 48 Tests for antibodies to dsDNA and SHELLIE antigens are not performed automatically unless the MAGY result is > or= 3.0 U. Studies performed at [facility] indicate that positive MAGY results <3.0 U are rarely accompanied by positive second order tests. Test Performed by: [address] [address] [employer] Machine Tender: Weston Keith II, M.D., Ph.D. 49 [id number] 50 Serum levels of PSA measured using the [employer] DXI Hybritech immunoassay should not be interpreted as absolute evidence of the presence or absence of disease. The PSA value should be used in conjunction with other pertinent clinical diagnostic procedures. The values obtained with different assay methods or kits cannot be used interchangeably. 51 [id number] 53 [id number] 54 [id number] 55 Test includes Fentanyl and Norfentanyl 56 Test includes Oxycodone and Oxymorphone 57 Oxycodone detected; this finding is consistent with use of medications that include Oxycontin, Percodan, Percocet, Tylox, or generic formulations. Drugs listed are lifeline representatives of common sources of the compound detected and are not intended to include all possible sources. 58 Oxymorphone detected; this finding is consistent with use of medications that include Numorphan, Opana, or drugs containing Oxycodone, or generic formulations. Drugs listed are lifeline representatives of common sources of the compound detected and are not intended to include all possible sources. 59 The date recorded on the requisition indicates the sample(s) received were greater than 72 hours old upon arrival in our laboratory. 60 Opiate test includes Codeine, Morphine, Hydromorphone, Hydrocodone. 61 Morphine detected; this finding is consistent with use of medications that include Duromorph, MS-Contin, Roxanol, Raysa, or drugs containing Codeine, or generic formulations. This drug may also be detected from use of Heroin. Drugs listed are lifeline representatives of common sources of the compound detected and are not intended to include all possible sources. 62 Hydromorphone detected; this finding is consistent with use of medications that include Dilaudid, or drugs containing Hydrocodone, or generic formulations. This drug may also be detected as a minor metabolite associated with high doses of morphine. Drugs listed are lifeline representatives of common sources of the compound detected and are not intended to include all possible sources. 63 Oxazepam detected; this finding is consistent with use of medications that include Serax, Valium, Librium, Tranzene, Paxipam, Centrax, Restoril, or generic formulations. Drugs listed are lifeline representatives of common sources of the compound detected and are not intended to include all possible sources. 64 Temazepam detected; this finding is consistent with use of medications that include Restoril, Normison, Valium, or generic formulations. Drugs listed are lifeline representatives of common sources of the compound detected and are not intended to include all possible sources. 65 See Final Results Drug brands, if listed herein, are trademarks of their respective owners. 66 See Final Results Opiate test includes Codeine, Morphine, Hydromorphone, Hydrocodone. Drug brands, if listed herein, are trademarks of their respective owners. 67 This test was developed and its performance characteristics determined by [employer]. It has not been cleared or approved by the Food and Drug Administration. 68 Drug-test results should be interpreted in the context of clinical information. Patient metabolic variables, specific drug chemistry, and specimen characteristics can affect test outcome. Technical consultation is available if a test result is inconsistent with an expected outcome. ([email or web address] or call toll-free [phone]) Drug brands, if listed herein, are trademarks of their respective owners. 69 See Final Results Test includes Oxycodone and Oxymorphone Drug brands, if listed herein, are trademarks of their respective owners. 70 See Final Results Test includes Fentanyl and Norfentanyl This test was developed and its performance characteristics determined by [employer]. It has not been cleared or approved by the Food and Drug Administration. Drug brands, if listed herein, are trademarks of their respective owners. 71 Serum levels of PSA measured using the [place] DXI Hybritech immunoassay should not be interpreted as absolute evidence of the presence or absence of disease. The PSA value should be used in conjunction with other pertinent clinical diagnostic procedures. The values obtained with different assay methods or kits cannot be used interchangeably. 72 Desirable <150 Borderline high 150-199 High 200-499 Very High >500 73 Desirable <200 Borderline high 200-239 High >239 74 Low <40 Desirable: 40-60 High: >60 75 Desirable: <100 mg/dL Near Optimal: 100-129 mg/dL Borderline High: 130-159 mg/dL High: 160-189 mg/dL Very High: >189 mg/dL 76 Low risk: <1.00 Average risk: 1.00-3.00 High risk: >3.00 77 Therapeutic target for the treatment of diabetes Mellitus patients is <7% HBA1C, and in selective patients <6.0%.Please refer to [place] [employer] Diabetic care guidelines for further information. 78 Because ethnic data is not always readily available, this report includes an eGFR for both -Americans and non- Americans. The National Kidney Disease Education Program (NKDEP) does not endorse the use of the MDRD equation for patients that are not between the ages of 18 and 70, are , have extremes of body size, muscle mass, or nutritional status, or are non- or non-. According to the National Kidney Foundation, irrespective of diagnosis, the stage of the disease is based on the level of kidney function: Stage Description GFR(mL/min/1.73 m(2)) 1 Kidney damage with normal or decreased GFR 90 2 Kidney damage with mild decrease in GFR 60-89 3 Moderate decrease in GFR 30-59 4 Severe decrease in GFR 15-29 5 Kidney failure <15 (or dialysis) Procedures Date Code Description Status 10/23/2018 34275 Spirometry Completed 10/23/2018 18786 Tympanometry Completed 07/18/2018 70650 Visual Screening Test Completed 07/18/2018 29472 EKG Completed 07/18/2018 31319 Audiometry, Bekesy, Screening Completed 07/11/2018 53202 Spirometry Completed 07/11/2018 99203 Tympanometry Completed 03/31/2018 09996 Injection DX/Therapeutic/Prophy Completed 01/16/2018 54272 Injection DX/Therapeutic/Prophy Completed 01/03/2018 76358 Tympanometry Completed 01/03/2018 58839 Spirometry Completed 01/03/2018 20315 Injection DX/Therapeutic/Prophy Completed 11/11/2017 05568 Injection Therap/Prophl/Diagnosti Completed 08/30/2017 51407 Injection DX/Therapeutic/Prophy Completed 08/02/2017 82852 Injection DX/Therapeutic/Prophy Completed 07/19/2017 17219 Injection DX/Therapeutic/Prophy Completed 06/18/2017 67462 Injection DX/Therapeutic/Prophy Completed 05/16/2017 10573 Injection DX/Therapeutic/Prophy Completed 04/19/2017 90206 Spirometry Completed 04/19/2017 60803 Injection DX/Therapeutic/Prophy Completed 04/05/2017 23236 Injection DX/Therapeutic/Prophy Completed 03/06/2017 28824 Injection DX/Therapeutic/Prophy Completed 03/05/2017 73841 Injection DX/Therapeutic/Prophy Completed 02/04/2017 41483 Visual Screening Test Completed 02/04/2017 00393 Injection DX/Therapeutic/Prophy Completed 02/04/2017 76100 EKG Completed 02/04/2017 99549 Audiometry, Bekesy, Screening Completed 01/03/2017 81657 Injection DX/Therapeutic/Prophy Completed 12/06/2016 94297 Injection DX/Therapeutic/Prophy Completed 11/06/2016 35092 Ear Irrigation Completed 11/06/2016 29512 Injection DX/Therapeutic/Prophy Completed 10/05/2016 60824 Injection DX/Therapeutic/Prophy Completed 09/20/2016 29109 Injection DX/Therapeutic/Prophy Completed 09/06/2016 49027 Injection DX/Therapeutic/Prophy Completed 05/15/2016 71169 Ear Irrigation Completed 04/24/2016 10159 Tympanometry Completed 12/16/2015 15856 Visual Screening Test Completed 12/16/2015 15837 EKG Completed 12/16/2015 48080 Audiometry, Bekesy, Screening Completed Encounters Type Date Location Provider Dx Diagnosis Office Visit 10/23/2018 [facility] Lidya Gunter, J44.9 Chronic obstructive 3:00p M.D. pulmonary disease, unspecified M15.9 Polyosteoarthritis, unspecified E78.2 Mixed hyperlipidemia I10 Essential (primary) hypertension B18.2 Chronic viral hepatitis C F41.9 Anxiety disorder, unspecified F33.9 Major depressive disorder, recurrent, unspecified G47.00 Insomnia, unspecified M25.512 Pain in left shoulder B35.1 Tinea unguium H52.4 Presbyopia L20.9 Atopic dermatitis, unspecified J30.9 Allergic rhinitis, unspecified N52.9 Male erectile dysfunction, unspecified H90.6 Mixed conductive and sensorineural hearing loss, bilateral E55.9 Vitamin D deficiency, unspecified E05.90 Thyrotoxicosis, unsp without thyrotoxic crisis or storm M51.37 Other intervertebral disc degeneration, lumbosacral region M71.331 Other bursal cyst, right wrist K59.00 Constipation, unspecified B35.6 Tinea cruris M79.643 Pain in unspecified hand I73.00 Raynaud's syndrome without gangrene H53.30 Unspecified disorder of binocular vision R73.01 Impaired fasting glucose F10.10 Alcohol abuse, uncomplicated E53.9 Vitamin B deficiency, unspecified F17.210 Nicotine dependence, cigarettes, uncomplicated R06.02 Shortness of breath M54.5 Low back pain M79.604 Pain in right leg F12.10 Cannabis abuse, uncomplicated Z79.891 jail (current) use of opiate analgesic I83.811 Varicose veins of right lower extremity with pain M25.552 Pain in left hip J20.9 Acute bronchitis, unspecified J01.40 Acute pansinusitis, unspecified R05 Cough R09.81 Nasal congestion R50.9 Fever, unspecified J18.9 Pneumonia, unspecified organism M25.561 Pain in right knee Office Visit 09/10/2018 2:30p [facility] Weston Hernandez J44.9 Chronic obstructive N.P. pulmonary disease, unspecified M15.9 Polyosteoarthritis, unspecified E78.2 Mixed hyperlipidemia I10 Essential (primary) hypertension B18.2 Chronic viral hepatitis C F41.9 Anxiety disorder, unspecified F33.9 Major depressive disorder, recurrent, unspecified M25.512 Pain in left shoulder L20.9 Atopic dermatitis, unspecified R05 Cough H90.6 Mixed conductive and sensorineural hearing loss, bilateral E55.9 Vitamin D deficiency, unspecified R09.81 Nasal congestion R53.83 Other fatigue F17.210 Nicotine dependence, cigarettes, uncomplicated J20.9 Acute bronchitis, unspecified H66.91 Otitis media, unspecified, right ear J02.9 Acute pharyngitis, unspecified M79.604 Pain in right leg M25.552 Pain in left hip J30.9 Allergic rhinitis, unspecified Z68.21 Body mass index (BMI) 21.0-21.9, adult Office Visit 07/18/2018 9:15a [facility] Weston Hernandez J44.9 Chronic obstructive N.P. pulmonary disease, unspecified M15.9 Polyosteoarthritis, unspecified E78.2 Mixed hyperlipidemia I10 Essential (primary) hypertension B18.2 Chronic viral hepatitis C F41.9 Anxiety disorder, unspecified F33.9 Major depressive disorder, recurrent, unspecified M25.512 Pain in left shoulder L20.9 Atopic dermatitis, unspecified R05 Cough H90.6 Mixed conductive and sensorineural hearing loss, bilateral Z68.21 Body mass index (BMI) 21.0-21.9, adult E55.9 Vitamin D deficiency, unspecified R09.81 Nasal congestion R53.83 Other fatigue F17.210 Nicotine dependence, cigarettes, uncomplicated J20.9 Acute bronchitis, unspecified H66.91 Otitis media, unspecified, right ear J02.9 Acute pharyngitis, unspecified M79.604 Pain in right leg Z00.01 Encounter for general adult medical exam w abnormal findings M25.552 Pain in left hip Z23 Encounter for immunization J30.9 Allergic rhinitis, unspecified Office Visit 07/11/2018 1:15p [facility] Juan Hernández44.9 Chronic obstructive N.P. pulmonary disease, unspecified M15.9 Polyosteoarthritis, unspecified E78.2 Mixed hyperlipidemia I10 Essential (primary) hypertension B18.2 Chronic viral hepatitis C F41.9 Anxiety disorder, unspecified F33.9 Major depressive disorder, recurrent, unspecified M25.512 Pain in left shoulder L20.9 Atopic dermatitis, unspecified J30.9 Allergic rhinitis, unspecified N52.9 Male erectile dysfunction, unspecified R05 Cough H90.6 Mixed conductive and sensorineural hearing loss, bilateral E55.9 Vitamin D deficiency, unspecified R09.81 Nasal congestion R53.83 Other fatigue F17.210 Nicotine dependence, cigarettes, uncomplicated J20.9 Acute bronchitis, unspecified H66.91 Otitis media, unspecified, right ear J02.9 Acute pharyngitis, unspecified M79.604 Pain in right leg Office Visit 03/31/2018 10:15a [facility] Lidya Gunter J44.9 Chronic obstructive M., M.D. pulmonary disease, unspecified M15.9 Polyosteoarthritis, unspecified E78.2 Mixed hyperlipidemia I10 Essential (primary) hypertension B18.2 Chronic viral hepatitis C F41.9 Anxiety disorder, unspecified F33.9 Major depressive disorder, recurrent, unspecified G47.00 Insomnia, unspecified M25.512 Pain in left shoulder B35.1 Tinea unguium H52.4 Presbyopia L20.9 Atopic dermatitis, unspecified J30.9 Allergic rhinitis, unspecified N52.9 Male erectile dysfunction, unspecified H90.6 Mixed conductive and sensorineural hearing loss, bilateral E55.9 Vitamin D deficiency, unspecified E05.90 Thyrotoxicosis, unsp without thyrotoxic crisis or storm M51.37 Other intervertebral disc degeneration, lumbosacral region M71.331 Other bursal cyst, right wrist K59.00 Constipation, unspecified B35.6 Tinea cruris M79.643 Pain in unspecified hand I73.00 Raynaud's syndrome without gangrene H53.30 Unspecified disorder of binocular vision R73.01 Impaired fasting glucose F10.10 Alcohol abuse, uncomplicated E53.9 Vitamin B deficiency, unspecified R06.02 Shortness of breath F17.210 Nicotine dependence, cigarettes, uncomplicated M54.5 Low back pain M79.604 Pain in right leg F12.10 Cannabis abuse, uncomplicated 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 pulmonary disease, unspecified M15.9 Polyosteoarthritis, unspecified E78.2 Mixed hyperlipidemia I10 Essential (primary) hypertension B18.2 Chronic viral hepatitis C F41.9 Anxiety disorder, unspecified F33.9 Major depressive disorder, recurrent, unspecified G47.00 Insomnia, unspecified M25.512 Pain in left shoulder B35.1 Tinea unguium H66.90 Otitis media, unspecified, unspecified ear H52.4 Presbyopia L20.9 Atopic dermatitis, unspecified J30.9 Allergic rhinitis, unspecified N52.9 Male erectile dysfunction, unspecified H90.6 Mixed conductive and sensorineural hearing loss, bilateral E55.9 Vitamin D deficiency, unspecified E05.90 Thyrotoxicosis, unsp without thyrotoxic crisis or storm M51.37 Other intervertebral disc degeneration, lumbosacral region M71.331 Other bursal cyst, right wrist K59.00 Constipation, unspecified B35.6 Tinea cruris M79.643 Pain in unspecified hand I73.00 Raynaud's syndrome without gangrene H53.30 Unspecified disorder of binocular vision R73.01 Impaired fasting glucose F10.10 Alcohol abuse, uncomplicated E53.9 Vitamin B deficiency, unspecified R06.02 Shortness of breath F17.210 Nicotine dependence, cigarettes, uncomplicated M54.5 Low back pain M79.604 Pain in right leg F12.10 Cannabis abuse, uncomplicated 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 pulmonary disease, unspecified M15.9 Polyosteoarthritis, unspecified E78.2 Mixed hyperlipidemia I10 Essential (primary) hypertension B18.2 Chronic viral hepatitis C F41.9 Anxiety disorder, unspecified F33.9 Major depressive disorder, recurrent, unspecified G47.00 Insomnia, unspecified M25.512 Pain in left shoulder B35.1 Tinea unguium H66.90 Otitis media, unspecified, unspecified ear H52.4 Presbyopia L20.9 Atopic dermatitis, unspecified J30.9 Allergic rhinitis, unspecified N52.9 Male erectile dysfunction, unspecified H90.6 Mixed conductive and sensorineural hearing loss, bilateral E55.9 Vitamin D deficiency, unspecified E05.90 Thyrotoxicosis, unsp without thyrotoxic crisis or storm M51.37 Other intervertebral disc degeneration, lumbosacral region M71.331 Other bursal cyst, right wrist K59.00 Constipation, unspecified B35.6 Tinea cruris M79.643 Pain in unspecified hand I73.00 Raynaud's syndrome without gangrene H53.30 Unspecified disorder of binocular vision R73.01 Impaired fasting glucose F10.10 Alcohol abuse, uncomplicated E53.9 Vitamin B deficiency, unspecified R06.02 Shortness of breath F17.210 Nicotine dependence, cigarettes, uncomplicated M54.5 Low back pain M79.604 Pain in right leg F12.10 Cannabis abuse, uncomplicated Z79.891 jail (current) use of opiate analgesic I83.811 Varicose veins of right lower extremity with pain M25.552 Pain in left hip J20.9 Acute bronchitis, unspecified J01.40 Acute pansinusitis, unspecified R05 Cough R09.81 Nasal congestion Office Visit 11/25/2017 3:30p [facility] Juan Orona44.9 Chronic [place] obstructive pulmonary disease, unspecified M15.9 Polyosteoarthritis, unspecified E78.2 Mixed hyperlipidemia I10 Essential (primary) hypertension B18.2 Chronic viral hepatitis C F41.9 Anxiety disorder, unspecified F33.9 Major depressive disorder, recurrent, unspecified G47.00 Insomnia, unspecified M25.512 Pain in left shoulder B35.1 Tinea unguium H52.4 Presbyopia L20.9 Atopic dermatitis, unspecified J30.9 Allergic rhinitis, unspecified N52.9 Male erectile dysfunction, unspecified H90.6 Mixed conductive and sensorineural hearing loss, bilateral E55.9 Vitamin D deficiency, unspecified E05.90 Thyrotoxicosis, unsp without thyrotoxic crisis or storm M51.37 Other intervertebral disc degeneration, lumbosacral region M71.331 Other bursal cyst, right wrist K59.00 Constipation, unspecified B35.6 Tinea cruris M79.643 Pain in unspecified hand I73.00 Raynaud's syndrome without gangrene H53.30 Unspecified disorder of binocular vision R73.01 Impaired fasting glucose F10.10 Alcohol abuse, uncomplicated R06.02 Shortness of breath E53.9 Vitamin B deficiency, unspecified F17.210 Nicotine dependence, cigarettes, uncomplicated M54.5 Low back pain M79.604 Pain in right leg F12.10 Cannabis abuse, uncomplicated 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 pulmonary disease, unspecified M15.9 Polyosteoarthritis, unspecified E78.2 Mixed hyperlipidemia I10 Essential (primary) hypertension B18.2 Chronic viral hepatitis C F41.9 Anxiety disorder, unspecified F33.9 Major depressive disorder, recurrent, unspecified G47.00 Insomnia, unspecified M25.512 Pain in left shoulder B35.1 Tinea unguium H52.4 Presbyopia L20.9 Atopic dermatitis, unspecified J30.9 Allergic rhinitis, unspecified N52.9 Male erectile dysfunction, unspecified H90.6 Mixed conductive and sensorineural hearing loss, bilateral E55.9 Vitamin D deficiency, unspecified E05.90 Thyrotoxicosis, unsp without thyrotoxic crisis or storm M51.37 Other intervertebral disc degeneration, lumbosacral region M71.331 Other bursal cyst, right wrist K59.00 Constipation, unspecified B35.6 Tinea cruris M79.643 Pain in unspecified hand I73.00 Raynaud's syndrome without gangrene H53.30 Unspecified disorder of binocular vision R73.01 Impaired fasting glucose F10.10 Alcohol abuse, uncomplicated R06.02 Shortness of breath E53.9 Vitamin B deficiency, unspecified F17.210 Nicotine dependence, cigarettes, uncomplicated M54.5 Low back pain M79.604 Pain in right leg F12.10 Cannabis abuse, uncomplicated Z79.891 jail (current) use of opiate analgesic I83.811 Varicose veins of right lower extremity with pain Z11.1 Encounter for screening for respiratory tuberculosis Office Visit 11/11/2017 3:45p [facility] Yeyo J44.9 JADON Kidd obstructive pulmonary disease, unspecified M15.9 Polyosteoarthritis, unspecified E78.2 Mixed hyperlipidemia I10 Essential (primary) hypertension B18.2 Chronic viral hepatitis C F41.9 Anxiety disorder, unspecified F33.9 Major depressive disorder, recurrent, unspecified G47.00 Insomnia, unspecified M25.512 Pain in left shoulder B35.1 Tinea unguium H52.4 Presbyopia L20.9 Atopic dermatitis, unspecified J30.9 Allergic rhinitis, unspecified N52.9 Male erectile dysfunction, unspecified H90.6 Mixed conductive and sensorineural hearing loss, bilateral E55.9 Vitamin D deficiency, unspecified E05.90 Thyrotoxicosis, unsp without thyrotoxic crisis or storm M51.37 Other intervertebral disc degeneration, lumbosacral region M71.331 Other bursal cyst, right wrist K59.00 Constipation, unspecified B35.6 Tinea cruris M79.643 Pain in unspecified hand I73.00 Raynaud's syndrome without gangrene H53.30 Unspecified disorder of binocular vision R73.01 Impaired fasting glucose F10.10 Alcohol abuse, uncomplicated R06.02 Shortness of breath E53.9 Vitamin B deficiency, unspecified F17.210 Nicotine dependence, cigarettes, uncomplicated D69.2 Other nonthrombocytopenic purpura M54.5 Low back pain M79.604 Pain in right leg I83.91 Asymptomatic varicose veins of right lower extremity F12.10 Cannabis abuse, uncomplicated 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 pulmonary disease, unspecified M15.9 Polyosteoarthritis, unspecified E78.2 Mixed hyperlipidemia I10 Essential (primary) hypertension B18.2 Chronic viral hepatitis C F41.9 Anxiety disorder, unspecified F33.9 Major depressive disorder, recurrent, unspecified G47.00 Insomnia, unspecified M25.512 Pain in left shoulder B35.1 Tinea unguium H52.4 Presbyopia L20.9 Atopic dermatitis, unspecified J30.9 Allergic rhinitis, unspecified N52.9 Male erectile dysfunction, unspecified H90.6 Mixed conductive and sensorineural hearing loss, bilateral E55.9 Vitamin D deficiency, unspecified E05.90 Thyrotoxicosis, unsp without thyrotoxic crisis or storm M51.37 Other intervertebral disc degeneration, lumbosacral region M71.331 Other bursal cyst, right wrist K59.00 Constipation, unspecified B35.6 Tinea cruris M79.643 Pain in unspecified hand I73.00 Raynaud's syndrome without gangrene R10.12 Left upper quadrant pain H53.30 Unspecified disorder of binocular vision R73.01 Impaired fasting glucose F10.10 Alcohol abuse, uncomplicated H92.03 Otalgia, bilateral R06.02 Shortness of breath R05 Cough E53.9 Vitamin B deficiency, unspecified F17.210 Nicotine dependence, cigarettes, uncomplicated D69.2 Other nonthrombocytopenic purpura M54.5 Low back pain M79.604 Pain in right leg I83.91 Asymptomatic varicose veins of right lower extremity F12.10 Cannabis abuse, uncomplicated 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 pulmonary disease, unspecified M15.9 Polyosteoarthritis, unspecified E78.2 Mixed hyperlipidemia I10 Essential (primary) hypertension B18.2 Chronic viral hepatitis C Z79.891 jail (current) use of opiate analgesic F41.9 Anxiety disorder, unspecified F33.9 Major depressive disorder, recurrent, unspecified G47.00 Insomnia, unspecified M25.512 Pain in left shoulder B35.1 Tinea unguium H52.4 Presbyopia L20.9 Atopic dermatitis, unspecified J30.9 Allergic rhinitis, unspecified N52.9 Male erectile dysfunction, unspecified H90.6 Mixed conductive and sensorineural hearing loss, bilateral E55.9 Vitamin D deficiency, unspecified E05.90 Thyrotoxicosis, unsp without thyrotoxic crisis or storm M51.37 Other intervertebral disc degeneration, lumbosacral region M71.331 Other bursal cyst, right wrist K59.00 Constipation, unspecified B35.6 Tinea cruris M79.643 Pain in unspecified hand I73.00 Raynaud's syndrome without gangrene R10.12 Left upper quadrant pain H53.30 Unspecified disorder of binocular vision R73.01 Impaired fasting glucose F10.10 Alcohol abuse, uncomplicated H92.03 Otalgia, bilateral R06.02 Shortness of breath R05 Cough E53.9 Vitamin B deficiency, unspecified F17.210 Nicotine dependence, cigarettes, uncomplicated D69.2 Other nonthrombocytopenic purpura M54.5 Low back pain M79.604 Pain in right leg I83.91 Asymptomatic varicose veins of right lower extremity Office Visit 08/02/2017 9:00a [facility] Lidya Gunter J44.9 Chronic obstructive Martha Del Rosario. pulmonary disease, unspecified M15.9 Polyosteoarthritis, unspecified E78.2 Mixed hyperlipidemia I10 Essential (primary) hypertension B18.2 Chronic viral hepatitis C Z79.891 jail (current) use of opiate analgesic F41.9 Anxiety disorder, unspecified F33.9 Major depressive disorder, recurrent, unspecified G47.00 Insomnia, unspecified M25.512 Pain in left shoulder B35.1 Tinea unguium H52.4 Presbyopia L20.9 Atopic dermatitis, unspecified J30.9 Allergic rhinitis, unspecified N52.9 Male erectile dysfunction, unspecified H90.6 Mixed conductive and sensorineural hearing loss, bilateral E55.9 Vitamin D deficiency, unspecified E05.90 Thyrotoxicosis, unsp without thyrotoxic crisis or storm M51.37 Other intervertebral disc degeneration, lumbosacral region M71.331 Other bursal cyst, right wrist K59.00 Constipation, unspecified B35.6 Tinea cruris M79.643 Pain in unspecified hand I73.00 Raynaud's syndrome without gangrene R10.12 Left upper quadrant pain H53.30 Unspecified disorder of binocular vision R73.01 Impaired fasting glucose F10.10 Alcohol abuse, uncomplicated H92.03 Otalgia, bilateral R06.02 Shortness of breath R05 Cough E53.9 Vitamin B deficiency, unspecified F17.210 Nicotine dependence, cigarettes, uncomplicated D69.2 Other nonthrombocytopenic purpura M54.5 Low back pain M79.604 Pain in right leg I83.91 Asymptomatic varicose veins of right lower extremity S33.5xxD Sprain of ligaments of lumbar spine, subsequent encounter Office Visit 07/19/2017 9:30a [facility] Lidya Gunter J44.9 Re obstructive Martha Del Rosario. pulmonary disease, unspecified M15.9 Polyosteoarthritis, unspecified E78.2 Mixed hyperlipidemia I10 Essential (primary) hypertension B18.2 Chronic viral hepatitis C Z79.891 jail (current) use of opiate analgesic F41.9 Anxiety disorder, unspecified F33.9 Major depressive disorder, recurrent, unspecified G47.00 Insomnia, unspecified M25.512 Pain in left shoulder B35.1 Tinea unguium H52.4 Presbyopia L20.9 Atopic dermatitis, unspecified J30.9 Allergic rhinitis, unspecified N52.9 Male erectile dysfunction, unspecified H90.6 Mixed conductive and sensorineural hearing loss, bilateral E55.9 Vitamin D deficiency, unspecified E05.90 Thyrotoxicosis, unsp without thyrotoxic crisis or storm M51.37 Other intervertebral disc degeneration, lumbosacral region M71.331 Other bursal cyst, right wrist K59.00 Constipation, unspecified B35.6 Tinea cruris M79.643 Pain in unspecified hand I73.00 Raynaud's syndrome without gangrene R10.12 Left upper quadrant pain H53.30 Unspecified disorder of binocular vision R73.01 Impaired fasting glucose F10.10 Alcohol abuse, uncomplicated H92.03 Otalgia, bilateral R06.02 Shortness of breath R05 Cough E53.9 Vitamin B deficiency, unspecified F17.210 Nicotine dependence, cigarettes, uncomplicated D69.2 Other nonthrombocytopenic purpura M54.5 Low back pain M79.604 Pain in right leg S33.5xxD Sprain of ligaments of lumbar spine, subsequent encounter I83.91 Asymptomatic varicose veins of right lower extremity Office Visit 07/16/2017 8:45a [facility] Lidya Gunter J44.9 Chronic obstructive M., MDelvinD. pulmonary disease, unspecified M15.9 Polyosteoarthritis, unspecified E78.2 Mixed hyperlipidemia I10 Essential (primary) hypertension B18.2 Chronic viral hepatitis C Z79.891 jail (current) use of opiate analgesic F41.9 Anxiety disorder, unspecified F33.9 Major depressive disorder, recurrent, unspecified G47.00 Insomnia, unspecified M25.512 Pain in left shoulder B35.1 Tinea unguium H52.4 Presbyopia L20.9 Atopic dermatitis, unspecified J30.9 Allergic rhinitis, unspecified N52.9 Male erectile dysfunction, unspecified H90.6 Mixed conductive and sensorineural hearing loss, bilateral E55.9 Vitamin D deficiency, unspecified E05.90 Thyrotoxicosis, unsp without thyrotoxic crisis or storm M51.37 Other intervertebral disc degeneration, lumbosacral region M71.331 Other bursal cyst, right wrist K59.00 Constipation, unspecified B35.6 Tinea cruris M79.643 Pain in unspecified hand I73.00 Raynaud's syndrome without gangrene R10.12 Left upper quadrant pain H53.30 Unspecified disorder of binocular vision R73.01 Impaired fasting glucose F10.10 Alcohol abuse, uncomplicated H92.03 Otalgia, bilateral R06.02 Shortness of breath R05 Cough E53.9 Vitamin B deficiency, unspecified F17.210 Nicotine dependence, cigarettes, uncomplicated S33.5xxA Sprain of ligaments of lumbar spine, initial encounter D69.2 Other nonthrombocytopenic purpura M54.5 Low back pain M79.604 Pain in right leg Office Visit 07/05/2017 9:45a [facility] Lidya Gunter J44.9 Chronic obstructive MMartha Hargrove. 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 F41.9 Anxiety disorder, unspecified F33.9 Major depressive disorder, recurrent, unspecified G47.00 Insomnia, unspecified M25.512 Pain in left shoulder B35.1 Tinea unguium H52.4 Presbyopia L20.9 Atopic dermatitis, unspecified J30.9 Allergic rhinitis, unspecified N52.9 Male erectile dysfunction, unspecified H90.6 Mixed conductive and sensorineural hearing loss, bilateral E55.9 Vitamin D deficiency, unspecified E05.90 Thyrotoxicosis, unsp without thyrotoxic crisis or storm M51.37 Other intervertebral disc degeneration, lumbosacral region M71.331 Other bursal cyst, right wrist K59.00 Constipation, unspecified B35.6 Tinea cruris M79.643 Pain in unspecified hand I73.00 Raynaud's syndrome without gangrene R10.12 Left upper quadrant pain H53.30 Unspecified disorder of binocular vision R73.01 Impaired fasting glucose F10.10 Alcohol abuse, uncomplicated H92.03 Otalgia, bilateral R06.02 Shortness of breath R05 Cough E53.9 Vitamin B deficiency, unspecified F17.210 Nicotine dependence, cigarettes, uncomplicated S33.5xxA Sprain of ligaments of lumbar spine, initial encounter D69.2 Other nonthrombocytopenic purpura M54.5 Low back pain Office Visit 06/18/2017 10:00a [facility] Lidya Gunter J44.9 Chronic obstructive M., MDelvinD. 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 F41.9 Anxiety disorder, unspecified F33.9 Major depressive disorder, recurrent, unspecified G47.00 Insomnia, unspecified M25.512 Pain in left shoulder B35.1 Tinea unguium H52.4 Presbyopia L20.9 Atopic dermatitis, unspecified J30.9 Allergic rhinitis, unspecified N52.9 Male erectile dysfunction, unspecified H90.6 Mixed conductive and sensorineural hearing loss, bilateral E55.9 Vitamin D deficiency, unspecified E05.90 Thyrotoxicosis, unsp without thyrotoxic crisis or storm M51.37 Other intervertebral disc degeneration, lumbosacral region M71.331 Other bursal cyst, right wrist K59.00 Constipation, unspecified B35.6 Tinea cruris M79.643 Pain in unspecified hand I73.00 Raynaud's syndrome without gangrene R10.12 Left upper quadrant pain H53.30 Unspecified disorder of binocular vision R73.01 Impaired fasting glucose F10.10 Alcohol abuse, uncomplicated H92.03 Otalgia, bilateral R06.02 Shortness of breath R05 Cough E53.9 Vitamin B deficiency, unspecified F17.210 Nicotine dependence, cigarettes, uncomplicated Z23 Encounter for immunization Office Visit 05/30/2017 10:00a [facility] Lidya Gunter J44.9 Chronic obstructive MDelvin MDelvinD. 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 F41.9 Anxiety disorder, unspecified F33.9 Major depressive disorder, recurrent, unspecified G47.00 Insomnia, unspecified M25.512 Pain in left shoulder B35.1 Tinea unguium H52.4 Presbyopia L20.9 Atopic dermatitis, unspecified J30.9 Allergic rhinitis, unspecified N52.9 Male erectile dysfunction, unspecified H90.6 Mixed conductive and sensorineural hearing loss, bilateral E55.9 Vitamin D deficiency, unspecified E05.90 Thyrotoxicosis, unsp without thyrotoxic crisis or storm M51.37 Other intervertebral disc degeneration, lumbosacral region M71.331 Other bursal cyst, right wrist K59.00 Constipation, unspecified B35.6 Tinea cruris M79.643 Pain in unspecified hand I73.00 Raynaud's syndrome without gangrene R10.12 Left upper quadrant pain H53.30 Unspecified disorder of binocular vision R73.01 Impaired fasting glucose F10.10 Alcohol abuse, uncomplicated H92.03 Otalgia, bilateral R06.02 Shortness of breath R05 Cough E53.9 Vitamin B deficiency, unspecified F17.210 Nicotine dependence, cigarettes, uncomplicated Office Visit 05/16/2017 9:15a [facility] Jomar Fraser F17.210 Nicotine dependence, [employer] cigarettes, uncomplicated J44.9 Chronic obstructive 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.891 jail (current) use of opiate analgesic D51.9 Vitamin B12 deficiency anemia, unspecified Office Visit 05/03/2017 9:15a [facility] Jani Inocenciadeisy J44.9 Chronic obstructive M., M.D. pulmonary disease, unspecified F17.210 Nicotine dependence, cigarettes, uncomplicated M54.5 Low back pain M15.9 Polyosteoarthritis, unspecified E78.2 Mixed hyperlipidemia F41.9 Anxiety disorder, unspecified F33.9 Major depressive disorder, recurrent, unspecified G47.00 Insomnia, unspecified B18.2 Chronic viral hepatitis C M25.512 Pain in left shoulder B35.1 Tinea unguium H52.4 Presbyopia L20.9 Atopic dermatitis, unspecified J30.9 Allergic rhinitis, unspecified N52.9 Male erectile dysfunction, unspecified H90.6 Mixed conductive and sensorineural hearing loss, bilateral E55.9 Vitamin D deficiency, unspecified E05.90 Thyrotoxicosis, unsp without thyrotoxic crisis or storm M51.37 Other intervertebral disc degeneration, lumbosacral region M71.331 Other bursal cyst, right wrist K59.00 Constipation, unspecified B35.6 Tinea cruris M79.643 Pain in unspecified hand I73.00 Raynaud's syndrome without gangrene R10.12 Left upper quadrant pain H53.30 Unspecified disorder of binocular vision R73.01 Impaired fasting glucose F10.10 Alcohol abuse, uncomplicated H92.03 Otalgia, bilateral R06.02 Shortness of breath R05 Cough E53.9 Vitamin B deficiency, unspecified 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 (current) use of opiate analgesic M25.512 Pain in left shoulder B35.1 Tinea unguium H52.4 Presbyopia L20.9 Atopic dermatitis, unspecified J30.9 Allergic rhinitis, unspecified N52.9 Male erectile dysfunction, unspecified H90.6 Mixed conductive and sensorineural hearing loss, bilateral 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 E55.9 Vitamin D deficiency, unspecified E05.90 Thyrotoxicosis, unsp without thyrotoxic crisis or storm M51.37 Other intervertebral disc degeneration, lumbosacral region M71.331 Other bursal cyst, right wrist K59.00 Constipation, unspecified B35.6 Tinea cruris M79.643 Pain in unspecified hand I73.00 Raynaud's syndrome without gangrene R10.12 Left upper quadrant pain E53.9 Vitamin B deficiency, unspecified H53.30 Unspecified disorder of binocular vision R73.01 Impaired fasting glucose F10.10 Alcohol abuse, uncomplicated H92.03 Otalgia, bilateral R06.02 Shortness of breath R05 Cough Office Visit 04/05/2017 9:30a [facility] Lidya Gunter J44.9 Chronic obstructive M., M.D. pulmonary disease, unspecified F17.210 Nicotine dependence, cigarettes, uncomplicated M54.5 Low back pain M15.9 Polyosteoarthritis, unspecified E78.2 Mixed hyperlipidemia F41.9 Anxiety disorder, unspecified F33.9 Major depressive disorder, recurrent, unspecified G47.00 Insomnia, unspecified B18.2 Chronic viral hepatitis C Z79.891 oil heaterman (current) use of opiate analgesic M25.512 Pain in left shoulder B35.1 Tinea unguium H52.4 Presbyopia L20.9 Atopic dermatitis, unspecified J30.9 Allergic rhinitis, unspecified N52.9 Male erectile dysfunction, unspecified H90.6 Mixed conductive and sensorineural hearing loss, bilateral 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 E55.9 Vitamin D deficiency, unspecified E05.90 Thyrotoxicosis, unsp without thyrotoxic crisis or storm M51.37 Other intervertebral disc degeneration, lumbosacral region M71.331 Other bursal cyst, right wrist K59.00 Constipation, unspecified B35.6 Tinea cruris M79.643 Pain in unspecified hand I73.00 Raynaud's syndrome without gangrene R10.12 Left upper quadrant pain E53.9 Vitamin B deficiency, unspecified H53.30 Unspecified disorder of binocular vision R73.01 Impaired fasting glucose F10.10 Alcohol abuse, uncomplicated Office Visit 03/06/2017 9:15a [facility] Jomar Fraser J44.9 Chronic obstructive AXLE POLISHER pulmonary disease, unspecified F17.210 Nicotine dependence, cigarettes, uncomplicated M54.5 Low back pain M15.9 Polyosteoarthritis, unspecified E78.2 Mixed hyperlipidemia F41.9 Anxiety disorder, unspecified F33.9 Major depressive disorder, recurrent, unspecified G47.00 Insomnia, unspecified B18.2 Chronic viral hepatitis C 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 E55.9 Vitamin D deficiency, unspecified E05.90 Thyrotoxicosis, unsp without thyrotoxic crisis or storm M51.37 Other intervertebral disc degeneration, lumbosacral region M71.331 Other bursal cyst, right wrist K59.00 Constipation, unspecified B18.2 Chronic viral hepatitis C B35.6 Tinea cruris M79.643 Pain in unspecified hand I73.00 Raynaud's syndrome without gangrene R10.12 Left upper quadrant pain E53.9 Vitamin B deficiency, unspecified H53.30 Unspecified disorder of binocular vision R73.01 Impaired fasting glucose Z00.01 Encounter for general adult medical exam w abnormal findings Office Visit 01/03/2017 9:45a [facility] Lidya Gunter J44.9 Chronic obstructive Miguel Ángel MKelly. 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.899 Other usp (current) drug therapy E55.9 Vitamin D deficiency, unspecified E05.90 Thyrotoxicosis, unsp without thyrotoxic crisis or storm M51.37 Other intervertebral disc degeneration, lumbosacral region M71.331 Other bursal cyst, right wrist K59.00 Constipation, unspecified B18.2 Chronic viral hepatitis C B35.6 Tinea cruris M79.643 Pain in unspecified hand I73.00 Raynaud's syndrome without gangrene R10.12 Left upper quadrant pain E53.9 Vitamin B deficiency, unspecified Office Visit 11/06/2016 11:45a [facility] JaniLidya J44.9 Chronic obstructive Miguel Ángel MKelly. 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.899 Other usp (current) drug therapy E55.9 Vitamin D deficiency, unspecified E05.90 Thyrotoxicosis, unsp without thyrotoxic crisis or storm M51.37 Other intervertebral disc degeneration, lumbosacral region M71.331 Other bursal cyst, right wrist K59.00 Constipation, unspecified B18.2 Chronic viral hepatitis C B35.6 Tinea cruris M79.643 Pain in unspecified hand I73.00 Raynaud's syndrome without gangrene R10.12 Left upper quadrant pain E53.9 Vitamin B deficiency, unspecified H61.21 Impacted cerumen, right ear Office Visit 10/05/2016 9:00a [facility] JaniHanktaco J44.9 Chronic obstructive Miguel Ángel MKelly. 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.899 Other usp (current) drug therapy E55.9 Vitamin D deficiency, unspecified E05.90 Thyrotoxicosis, unsp without thyrotoxic crisis or storm M51.37 Other intervertebral disc degeneration, lumbosacral region M71.331 Other bursal cyst, right wrist K59.00 Constipation, unspecified B18.2 Chronic viral hepatitis C B35.6 Tinea cruris M79.643 Pain in unspecified hand I73.00 Raynaud's syndrome without gangrene R10.12 Left upper quadrant pain E53.9 Vitamin B deficiency, unspecified Office Visit 09/06/2016 11:45a [facility] Lidya Gunter J44.9 Chronic obstructive M., M.D. 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.899 Other usp (current) drug therapy E55.9 Vitamin D deficiency, unspecified E05.90 Thyrotoxicosis, unsp without thyrotoxic crisis or storm M51.37 Other intervertebral disc degeneration, lumbosacral region M71.331 Other bursal cyst, right wrist K59.00 Constipation, unspecified B18.2 Chronic viral hepatitis C B35.6 Tinea cruris M79.643 Pain in unspecified hand I73.00 Raynaud's syndrome without gangrene Z12.5 Encounter for screening for malignant neoplasm of prostate Office Visit 08/02/2016 11:30a [facility] Lidya Gunter J44.9 Chronic obstructive MDelvin MDelvinD. 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.899 Other usp (current) drug therapy E55.9 Vitamin D deficiency, unspecified E05.90 Thyrotoxicosis, unsp without thyrotoxic crisis or storm M51.37 Other intervertebral disc degeneration, lumbosacral region M71.331 Other bursal cyst, right wrist K59.00 Constipation, unspecified B18.2 Chronic viral hepatitis C B35.6 Tinea cruris M79.643 Pain in unspecified hand I73.00 Raynaud's syndrome without gangrene Z23 Encounter for immunization Office Visit 05/15/2016 2:45p [facility] Lidya Gunter H66.93 Otitis media, Martha Del Rosario. unspecified, bilateral H60.311 Diffuse otitis externa, right ear H92.01 Otalgia, right ear J44.9 Chronic obstructive pulmonary disease, unspecified I10 Essential (primary) hypertension M54.5 Low back pain M15.9 Polyosteoarthritis, unspecified E78.2 Mixed hyperlipidemia M25.512 Pain in left shoulder F41.9 Anxiety disorder, unspecified F33.9 Major depressive disorder, recurrent, unspecified G47.00 Insomnia, unspecified B35.1 Tinea unguium H52.4 Presbyopia L20.9 Atopic dermatitis, unspecified J30.9 Allergic rhinitis, unspecified F17.210 Nicotine dependence, cigarettes, uncomplicated N52.9 Male erectile dysfunction, unspecified H90.6 Mixed conductive and sensorineural hearing loss, bilateral Z79.899 Other usp (current) drug therapy E55.9 Vitamin D deficiency, unspecified E05.90 Thyrotoxicosis, unsp without thyrotoxic crisis or storm M51.37 Other intervertebral disc degeneration, lumbosacral region M71.331 Other bursal cyst, right wrist K59.00 Constipation, unspecified B18.2 Chronic viral hepatitis C H61.21 Impacted cerumen, right ear Office Visit 04/24/2016 10:00a [facility] Lidya Gunter H66.93 Otitis media, Miguel Ángel MDelvinD. unspecified, bilateral H60.311 Diffuse otitis externa, right ear H92.01 Otalgia, right ear J44.9 Chronic obstructive pulmonary disease, unspecified I10 Essential (primary) hypertension M54.5 Low back pain M15.9 Polyosteoarthritis, unspecified E78.2 Mixed hyperlipidemia M25.512 Pain in left shoulder F41.9 Anxiety disorder, unspecified F33.9 Major depressive disorder, recurrent, unspecified G47.00 Insomnia, unspecified B35.1 Tinea unguium H52.4 Presbyopia L20.9 Atopic dermatitis, unspecified J30.9 Allergic rhinitis, unspecified F17.210 Nicotine dependence, cigarettes, uncomplicated N52.9 Male erectile dysfunction, unspecified H90.6 Mixed conductive and sensorineural hearing loss, bilateral Z79.899 Other usp (current) drug therapy E55.9 Vitamin D deficiency, unspecified E05.90 Thyrotoxicosis, unsp without thyrotoxic crisis or storm M51.37 Other intervertebral disc degeneration, lumbosacral region M71.331 Other bursal cyst, right wrist K59.00 Constipation, unspecified B18.2 Chronic viral hepatitis C Office Visit 04/11/2016 9:45a [facility] Bria Jomar J44.9 Chronic obstructive AXLE POLISHER pulmonary disease, unspecified I10 Essential (primary) hypertension M54.5 Low back pain M15.9 Polyosteoarthritis, unspecified E78.2 Mixed hyperlipidemia F17.200 Nicotine dependence, unspecified, uncomplicated Office Visit 03/27/2016 11:45a [facility] Lidya Gunter J44.9 Chronic obstructive Martha Del Rosario. pulmonary disease, unspecified I10 Essential (primary) hypertension M54.5 Low back pain M15.9 Polyosteoarthritis, unspecified M25.512 Pain in left shoulder E78.2 Mixed hyperlipidemia F41.9 Anxiety disorder, unspecified F33.9 Major depressive disorder, recurrent, unspecified G47.00 Insomnia, unspecified B35.1 Tinea unguium H52.4 Presbyopia L20.9 Atopic dermatitis, unspecified J30.9 Allergic rhinitis, unspecified F17.210 Nicotine dependence, cigarettes, uncomplicated N52.9 Male erectile dysfunction, unspecified H90.6 Mixed conductive and sensorineural hearing loss, bilateral Z79.899 Other usp (current) drug therapy E55.9 Vitamin D deficiency, unspecified E05.90 Thyrotoxicosis, unsp without thyrotoxic crisis or storm M51.37 Other intervertebral disc degeneration, lumbosacral region M71.331 Other bursal cyst, right wrist K59.00 Constipation, unspecified B18.2 Chronic viral hepatitis C Office Visit 03/13/2016 2:30p [facility] JaniLidya ghosh J44.Yadiel Chronic obstructive MDelvin MKelly. pulmonary disease, unspecified I10 Essential (primary) hypertension M54.5 Low back pain M15.9 Polyosteoarthritis, unspecified M25.512 Pain in left shoulder E78.2 Mixed hyperlipidemia F41.9 Anxiety disorder, unspecified F33.9 Major depressive disorder, recurrent, unspecified G47.00 Insomnia, unspecified B35.1 Tinea unguium H52.4 Presbyopia L20.9 Atopic dermatitis, unspecified J30.9 Allergic rhinitis, unspecified F17.210 Nicotine dependence, cigarettes, uncomplicated N52.9 Male erectile dysfunction, unspecified H90.6 Mixed conductive and sensorineural hearing loss, bilateral Z79.899 Other usp (current) drug therapy E55.9 Vitamin D deficiency, unspecified E05.90 Thyrotoxicosis, unsp without thyrotoxic crisis or storm M51.37 Other intervertebral disc degeneration, lumbosacral region M71.331 Other bursal cyst, right wrist Office Visit 02/01/2016 2:15p [facility] Lidya Gunter J44.9 Chronic obstructive MDelvin MKelly. pulmonary disease, unspecified I10 Essential (primary) hypertension M54.5 Low back pain M15.9 Polyosteoarthritis, unspecified M25.512 Pain in left shoulder E78.2 Mixed hyperlipidemia F41.9 Anxiety disorder, unspecified F33.9 Major depressive disorder, recurrent, unspecified G47.00 Insomnia, unspecified B35.1 Tinea unguium H52.4 Presbyopia L20.9 Atopic dermatitis, unspecified J30.9 Allergic rhinitis, unspecified F17.210 Nicotine dependence, cigarettes, uncomplicated N52.9 Male erectile dysfunction, unspecified H90.6 Mixed conductive and sensorineural hearing loss, bilateral Z79.899 Other usp (current) drug therapy E55.9 Vitamin D deficiency, unspecified E05.90 Thyrotoxicosis, unsp without thyrotoxic crisis or storm M51.37 Other intervertebral disc degeneration, lumbosacral region Office Visit 12/23/2015 10:30a [facility] Lidya Gunter J44.9 Chronic obstructive Luis A Del Rosario pulmonary disease, unspecified I10 Essential (primary) hypertension M54.5 Low back pain M15.9 Polyosteoarthritis, unspecified M25.512 Pain in left shoulder E78.2 Mixed hyperlipidemia F41.9 Anxiety disorder, unspecified F33.9 Major depressive disorder, recurrent, unspecified G47.00 Insomnia, unspecified B35.1 Tinea unguium H52.4 Presbyopia L20.9 Atopic dermatitis, unspecified J30.9 Allergic rhinitis, unspecified F17.210 Nicotine dependence, cigarettes, uncomplicated N52.9 Male erectile dysfunction, unspecified H90.6 Mixed conductive and sensorineural hearing loss, bilateral 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 E55.9 Vitamin D deficiency, unspecified E05.90 Thyrotoxicosis, unsp without thyrotoxic crisis or storm H61.21 Impacted cerumen, right ear M51.37 Other intervertebral disc degeneration, lumbosacral region Office Visit 12/16/2015 9:30a [facility] Lidya Gunter Z00.01 Encounter for Luis A Del Rosario general adult medical exam w abnormal findings J44.9 Chronic obstructive pulmonary disease, unspecified I10 Essential (primary) hypertension M54.5 Low back pain M15.9 Polyosteoarthritis, unspecified M25.512 Pain in left shoulder E78.2 Mixed hyperlipidemia F41.9 Anxiety disorder, unspecified F33.9 Major depressive disorder, recurrent, unspecified G47.00 Insomnia, unspecified B35.1 Tinea unguium Z68.21 Body mass index (BMI) 21.0-21.9, adult H52.4 Presbyopia L20.9 Atopic dermatitis, unspecified J30.9 Allergic rhinitis, unspecified F17.210 Nicotine dependence, cigarettes, uncomplicated N52.9 Male erectile dysfunction, unspecified H90.6 Mixed conductive and sensorineural hearing loss, bilateral 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 Plan of Treatment 11/13/2018 - Lidya Gunter M.D.J44.9 Chronic obstructive pulmonary disease, unspecifiedComments:INCREASE PO FLUIDRESTSMOKING CESSATION COUNCELLING NEB OR MDI AND /OR DQDBFYU37.9 Polyosteoarthritis, unspecifiedComments:EXERCISE/HEAT/ MESSAGETYLENOL OR MOTRIN PRNAVOID HEAVY LIFTINGWT LOSS DUR INLINZUH03.2 Mixed hyperlipidemiaComments:DIET REVIEWED CONTINUE DIETWT LOSSF/U LAB FBWI10 Essential (primary) hypertensionComments:CHECK BP TIW ( PRN)F/U LABDIET AND FLUID COUNSELING LOW SODIUM DIETWT LOSSF/U LABSMOKING/TOBACCO ABUSE CIKYAUVORD47.2 Chronic viral hepatitis CComments:F/U WITH GIF41.9 Anxiety disorder, unspecifiedComments:COUNCELLING AND REASSURANCE RELAXATION TECHNIQUES DISCUSSEDCOUNSELED RE: STRESSORS IN LIFE AVOID ALLENERGY/HIGH CAFFEINE DRINKS DUR FNPYPKNZ06.9 Major depressive disorder, recurrent, unspecifiedComments: COUNCELLING AND REASSURANCE RELAXATION TECHNIQUES DISCUSSED COUNSELED RE: STRESSORS IN LIFEG47.00 Insomnia, unspecifiedComments:COUNCELLING AND REASSURANCE RELAXATION TECHNIQUES DISCUSSED COUNSELED RE: STRESSORS IN LIFE TYLENOLPM OR MOTRIN PM PRN DUR HCJCTCDU82.512 Pain in left shoulderComments: EXERCISE/HEAT /MESSAGE AVOID HEAVY LIFTINGTYLENOL OR MOTRIN PRN DUR CHECKED F/U PAIN OQZVCFH59.1 Tinea unguiumComments:NAIL CAREH52.4 PresbyopiaComments: USE GLASSES/CONTACTSF/U WITH BRBAWMFGMWAMCH94.9 Atopic dermatitis, unspecifiedComments:SKIN CARE INSTRUCTIONS LOTION OR BABY OIL 2-3 APPLICATION PER DAYUSE MOISTURIZING SOAPAVOID PROLONGED WATER EXPOSUREAVOID USING HOT WATER IN LBVSXGS99.9 Allergic rhinitis, unspecifiedComments:INCREASE PO FLUID USE ANTIHISTAMINE PRN SECOND HAND SMOKING AVOIDANCE SMOKING PXOSPSAPRU07.9 Male erectile dysfunction, unspecifiedComments:COUNCELLING AND TEACHING ON DIFEEERENT TREATMENT KRRHMASK41.6 Mixed conductive and sensorineural hearing loss, bilateralComments:OBSERVE F/U WITH ENT PRN SMOKING FKXPVCDOLU40.9 Vitamin D deficiency, unspecifiedComments:INCREASE EXPOSURE TO SUNREVIEW OF DIETE05.90 Thyrotoxicosis, unspecified without thyrotoxic crisis or stoComments:OBSERVE F/ U WITH ENDOCRINOLOGY STABLE AND ASYMPTOMATICF/U LABM51.37 Other intervertebral disc degeneration, lumbosacral regionComments:EXERCISE/HEAT /MESSAGEAVOID HEAVY LIFTING WT LOSSTYLENOL OR MOTRIN PRN DUR GPQQSLNW43.331 Other bursal cyst, right wristComments:OBSERVEF/U WITH ORTHO PRNK59.00 Constipation, unspecifiedComments:MOM OR MIRALAX PRNHIGH FIBER DIETINCREASE PO IIPIXA83.6 Tinea crurisComments:SKIN CARE GEDNRGXXDUXP11.643 Pain in unspecified handComments:EXERCISE/HEAT/MESSAGETYLENOL OR MOTRIN PRNAVOID HEAVY LIFTINGWT LOSS DUR GXQNBNYJ22.00 Raynaud's syndrome without gangreneComments:SKIN CARE FOOT CAREH53.30 Unspecified disorder of binocular visionComments:USE GLASSES/ CONTACTSF/U WITH PMRVTJTGQCSLFM89.01 Impaired fasting glucoseComments:F/U HGAICFS QAC AN HS PRNLOW GLUCOSE DIETF10.10 Alcohol abuse, uncomplicatedComments :ETOH ABSTINENCECOUNCELLING AND DABPMXOESZRS58.9 Vitamin B deficiency, unspecifiedComments:INCRFEASE PO FLUIDCOUNCELLING AND REASSURANCE RESTF17.210 Nicotine dependence, cigarettes, uncomplicatedComments:SMOKING CESSATION AMMYVJDXWBBM92.02 Shortness of breathComments:NEB OR MDI AND /OR OXYGENINCREASE PO FLUIDRESTSMOKING TTDBQKVBUU87.5 Low back painComments:EXERCISE/HEAT / MESSAGEAVOID HEAVY LIFTING WT LOSSTYLENOL OR MOTRIN PRN DUR EOHZZOYA74.604 Pain in right legComments:TYLENOL OR MOTRIN PRN EXERCISE/HEAT/MESSAGE DUR ZJZKHCRH93.10 Cannabis abuse, uncomplicatedComments:CESSATION ENCOURAGEDLONG TERM EFFECTS WUCCFHIMVH25.891 oil heaterman (current) use of opiate analgesicComments:DUR CHECKEDPT WLL NOT BE RX ANY PAIN RX FROM THIS OFFICE HE WAS POSITIVE FOR MHC AND MNTRJWNJ87.811 Varicose veins of right lower extremity with painComments:WT. LOSS ELEVATE LOWER EXT. ELASTIC ZXVRNTDYY62.552 Pain in left hipComments:EXERCISE/HEAT/MESSAGETYLENOL OR MOTRIN PRNAVOID HEAVY LIFTINGWT LOSSJ20.9 Acute bronchitis, unspecifiedComments:CEUJKSMSE91.40 Acute pansinusitis, unspecifiedComments:ZDQCWMSSG17 CoughComments:YQDGARPZD68.81 Nasal congestionComments:WQQBBKBMZ48.9 Fever, unspecifiedComments:CELZFFHLE07.9 Pneumonia, unspecified organismComments:PIKXUCWEV26.561 Pain in right kneeComments:GGMYGUSSH42.90 Unilateral inguinal hernia, without obstruction or gangrene, not specified as recurrentComments:STABLE USE HERNIA BELT PRNZ01.818 Encounter for other preprocedural examinationComments:MEDICALLY CLEAREDF/U WITH OPHTH.
--- OUTSIDE RECORDS SUMMARY | 2018-11-27 10:59 | XMS REPORT | Continuity of Care Document ---
:1960 External Reference #:[id number] Author Name Cesilia Salmeron Care Team Providers Name Role Phone Lidya Gunter MD Primary Care Physician Unavailable Payers Type Date Identification Numbers Payment Provider Subscriber Effective: Policy Number: [id number] [employer] Roberto Carlos Solo 2009 Medicaid PayID: [id number] [address] [address] [place] [address] Advance Directives Description No Information Available Problems Date Description Provider Status Onset: 10/03/2018 Localized, primary osteoarthritis of Patti Harvey M.D. Active the pelvic region and thigh Onset: 07/19/2015 Derangement of knee Ramón Flores M.D. 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 ETOH Use Currently consumes alcohol Tobacco Use Start: Unknown Patient is a current 3 cigarettes per day smoker, smokes every - has been a smoker x day 38 years Smoking Status Reviewed: 11/07/18 Patient is a current 3 cigarettes per day smoker, smokes every - has been a smoker x day 38 years Exercise Does not exercise Type/Frequency Allergies, Adverse Reactions, Alerts Description No Known Drug Allergies Medications Medication Date Status Form Strength Qnty SIG Indications Ordering Provider Amlodipine Active 10MCT 1 po qd Unknown Besylate 000 Trazodone HCL Active 150mg Unknown 000 Morphine Active Unknown Sulfate ER 000 Oxycodone HCL Active 10mg Unknown 000 Naproxen Active Unknown 000 Vitamins 00/00/0 Active Unknown 000 Sulfamethoxaz Hx Tablets 800-160mg 60tabs 1 by M86.171 Cam Boss ole/Trimethop 016 - mouth layla Pace DS twice MDelvinDDelvin 018 daily Diazepam Hx 10mg prn Unknown 000 - 018 Bupropion HCL Hx Tablets ER 100mg bid ELZBIETA Adrian (SR) 000 - 12HR MD Ildefonso 018 Immunizations Description No Information Available Vital Signs Date Vital Result Comment 11/07/2018 1:09pm Height 68.25 inches 5'8.25" Weight 151.00 lb Heart Rate 82 /min BP Systolic 122 mmHg BP Diastolic 76 mmHg Body Temperature 99.0 F Pain Level 8 BMI (Body Mass Index) 22.8 kg/m2 10/03/2018 3:15pm Height 68.25 inches 5'8.25" Weight 147.00 lb Heart Rate 64 /min BP Systolic 130 mmHg BP Diastolic 76 mmHg BMI (Body Mass Index) 22.2 kg/m2 10/25/2015 8:39am Height 68 inches 5'8" Weight 145.00 lb Heart Rate 80 /min BP Systolic 120 mmHg BP Diastolic 76 mmHg Respiratory Rate 14 /min Body Temperature 97.9 F BMI (Body Mass Index) 22.0 kg/m2 07/19/2015 12:59pm Height 68 inches 5'8" Weight 150.00 lb Heart Rate 78 /min BP Systolic 115 mmHg BP Diastolic 79 mmHg BMI (Body Mass Index) 22.8 kg/m2 Results Test Date Facility Test Result H/L Range Note Laboratory test 10/25/2015 [facility] C Reactive < 1.00 mg/L N < 5.00 [address] [place] [address] [phone] 1 Acute inflammation: >10.00 Procedures Description No Information Available Encounters Type Date Location Provider Dx Diagnosis Office Visit 10/03/2018 Orthopedic Patti Harvey, M25.552 Pain in left hip 3:00p [facility] M16.12 Unilateral primary osteoarthritis, left hip Office Visit 10/25/2015 [facility] Cam Boss M86.171 Other acute 9:30a For Infectious [place]en, M.D. osteomyelitis, Diseases right ankle and foot Office Visit 07/19/2015 Orthopedic Ramón M22.2x1 Patellofemoral 1:00p [facility] disorders, right [facility] knee M22.2x2 Patellofemoral disorders, left knee Plan of Treatment Future Appointment(s):11/20/2018 3:30 pm - Rishi Ramsey PA-C at [facility]11/20/2018 3:30 pm - JADON Villaseñor at [facility]11/20/2018 3:30 pm - Patti Harvey M.D. at [facility]11/07/2018 - Patti Harvey M.D.M25.552 Pain in left hipFollow up:Follow up: 2 weeks after saxnyzkR59.12 Unilateral primary osteoarthritis, left hip
[2018-11-27] MEDS ORDERED: ceFAZolin 2 GM PREMIX in ORs 2 GM/50 ML BAG IVPB ONE (11:50)
[2018-11-27] MEDS ORDERED: Famotidine IV* 10 MG/ML 2 ML (20 mg) ONE (11:50)
[2018-11-27] MEDS ORDERED: fentaNYL* 50 MCG/ML 2 ML VIAL (100 MCG VIAL) ONE ×3 (13:50→17:16)
[2018-11-27] MEDS ORDERED: Dexamethasone IV* 4 MG/ML 1 ML (4 MG) ONE (13:50)
[2018-11-27] MEDS ORDERED: Midazolam* 1 MG/ML 5 ML VIAL (5 MG) ONE (13:50)
[2018-11-27] MEDS ORDERED: Ketorolac INJ* 30 MG/ML 1 ML VIAL ONE (13:50)
[2018-11-27] MEDS ORDERED: Propofol* 10 MG/ML 20 ML BTL ONE (13:50)
[2018-11-27] MEDS ORDERED: Ondansetron INJ* 2 MG/ML VIAL ONE (13:50)
[2018-11-27] MEDS ORDERED: Lidocaine 2% PF * 5 ML VIAL ONE (13:50)
[2018-11-27] MEDS ORDERED: ROPIVACAINE 5 MG/ML 30 ML BTL (0.5%) ONE (14:39)
[2018-11-27] MEDS ORDERED: Cisatracurium* 2 MG/ML MDV 5 ML ONE (15:02)
[2018-11-27] MEDS ORDERED: EPHEDrine (Pressors)* 50 MG/ML VIAL ONE (15:35)
[2018-11-27] MEDS ORDERED: Ondansetron INJ* 2 MG/ML VIAL IV PRN ×2 (16:17→17:17)
[2018-11-27] MEDS ORDERED: Magnesium Hydroxide LIQ* 30 ML UDC PO PRN (16:17)
[2018-11-27] MEDS ORDERED: Morphine INJ* 2 MG/ML 1 ML SYRINGE (TWO MG - NEW SYRINGE VERSION) IV PRN (16:17)
[2018-11-27] MEDS ORDERED: Polyethylene Glycol 3350* 17 GM PACKET PO PRN (16:17)
[2018-11-27] MEDS ORDERED: Bisacodyl SUPP* 10 MG SUPP PR PRN (16:17)
[2018-11-27] MEDS ORDERED: diPHENhydraMINE IV* 50 MG/ML 1 ml VIAL (BENADRYL) IV PRN (16:17)
[2018-11-27] MEDS ORDERED: oxyCODONE/Acetamin 5/325 MG* TAB PO PRN (16:17)
[2018-11-27] MEDS ORDERED: HYDROmorphone INJ1* 1 MG/ML SYRINGE ONE ×3 (16:53→17:16)
[2018-11-27] MEDS ORDERED: Naloxone* 0.4 MG/ML 1 ML VIAL IV PRN (17:17)
[2018-11-27] MEDS ORDERED: HYDROmorphone INJ1* 1 MG/ML SYRINGE IV PRN (17:17)
[2018-11-27] MEDS: fentaNYL* 50 MCG/ML 2 ML VIAL (100 MCG VIAL) IV PRN ×2 (17:26→17:51)
[2018-11-27] MEDS: oxyCODONE TAB* 5 MG TAB PO PRN (18:05)
[2018-11-27] MEDS ORDERED: oxyCODONE TAB* 5 MG TAB ONE (18:05)
[2018-11-27] MEDS ORDERED: Nicotine Inhaler* 10 MG AMP INH PRN (18:09)
[2018-11-27] MEDS ORDERED: traZODone TAB* 100 MG PO PRN (18:13)
[2018-11-27] MEDS ORDERED: Mouth Piece, Nicotine* 1 EACH CARTRIDGE INH PRN (18:32)
[2018-11-27] MEDS: Acetaminophen TAB* 325 MG PO SCH (18:56)
[2018-11-27] MEDS: Morphine TAB Extended Release (*) 15 MG TAB.ER PO SCH ×2 (18:56→23:38)
[2018-11-27] MEDS: Lactated Ringers 1000 ML Bag* 1,000 ML IV SCH (18:57)
--- NOTE | 2018-11-27 20:00 | CONS ---
MEDICAL CONSULTATION NOTE: DATE OF CONSULTATION: 11/27/18 HISTORY OF PRESENT ILLNESS: Dr. Harvey kindly asked me to see this patient in consultation. I examined him on 11/27/18. The patient was admitted this morning for elective left total hip arthroplasty. He has had the procedure uneventfully and I have seen him in the recovery room. He is alert and quite oriented. He is complaining of some chronic back pain and some left hip pain. PAST MEDICAL HISTORY: The patient's past medical history includes hypertension and hepatitis C, which is treated by Dr. Flores, for which the patient says he now has 0 counts. He has been treated for depression, anxiety, cocaine and alcohol addiction. PAST SURGICAL HISTORY: Appendectomy and left hand surgery x2. CURRENT MEDICATIONS: 1. Amlodipine 10 mg daily. 2. Trazodone 150 mg daily. 3. Morphine sulfate 20 mg b.i.d. 4. Oxycodone 10 mg t.i.d. 5. Naproxen 500 mg b.i.d. 6. Multivitamin. ALLERGIES: None known. FAMILY HISTORY: Positive for cerebral hemorrhage and cancer. SOCIAL HISTORY: He continues to smoke. He drinks occasional beer. His significant other and surrogate decision maker is Keisha Martin. REVIEW OF SYSTEMS: A 14-point review of systems was reviewed, other than problems mentioned above is negative. PHYSICAL EXAMINATION: He is a well-developed, well-nourished man lying on the PACU stretcher. He is alert and oriented. Temperature 96.8, blood pressure 133/ 74, O2 saturation 100% on nasal oxygen, heart rate 94, respirations 13. He is a pleasant thin man. His height is 5 feet 8.5 inches, weight 143 pounds. HEENT shows no signs of head trauma. He is normocephalic. Mouth and pharynx were clear. Neck was supple. No JVD, thyromegaly or adenopathy. Heart and lungs were clear anteriorly. Abdomen: Soft, no masses, organomegaly or tenderness. Bowel sounds were normal. There was no pedal edema. No calf tenderness. Skin was warm, dry, and intact. His legs were strapped to a foam immobilizer. The patient has chronic opioid use and will require a higher dose for acute pain. We do not have 20 mg size morphine. I am going to use 15 mg every 6 hours around the clock. This would be 50% more than he was getting at home. It should be tapered over the next few days or next week or so. The patient did not want a nicotine patch. I have left a p.r.n. order for nicotine inhaler. I have ordered his bedtime dose of trazodone. His bupropion will be continued as well. Amlodipine is also being continued. Thank you for allowing me to see this patient in consultation. We will follow him along with you until discharge. [id number]/[facility] #: [id number] MTDD
[2018-11-27] MEDS: buPROPion SR TAB.SR* 150 MG PO SCH (21:46)
[2018-11-27] MEDS: Magnesium Hydroxide LIQ* 30 ML UDC PO SCH (21:47)
[2018-11-27] MEDS: ceFAZolin 1 GM ADVAN(*) 1 GM in NS 0.9% 50 ML* 50 ML IVPB SCH (23:34)
[2018-11-28] MEDS: oxyCODONE/Acetamin 5/325 MG* TAB PO PRN ×3 (03:51→12:39)
[2018-11-28] MEDS: Acetaminophen TAB* 325 MG PO SCH ×2 (04:29→10:42)
[2018-11-28] MEDS: Lactated Ringers 1000 ML Bag* 1,000 ML IV SCH (04:57)
[2018-11-28] MEDS: Morphine TAB Extended Release (*) 15 MG TAB.ER PO SCH ×2 (05:45→12:40)
[2018-11-28 06:01] LABS: Hematocrit 29 % (42-52); Hemoglobin 10.1 g/dl (14.0-18.0); Mean Platelet Volume 7.8 fL (7.4-10.4); Platelet Count 171 10^3/ul (150-450)
[2018-11-28 06:26] LABS: BUN/Creatinine Ratio 15.9 (8-20); Calcium 8.3 mg/dL (8.6-10.3); EGFR African American 159.4 (>60); EGFR Non-African American 131.7 (>60); Potassium 4.3 mmol/L (3.5-5.0)
[2018-11-28] MEDS: ceFAZolin 1 GM ADVAN(*) 1 GM in NS 0.9% 50 ML* 50 ML IVPB SCH ×2 (07:56→15:00)
[2018-11-28] MEDS: buPROPion SR TAB.SR* 150 MG PO SCH (07:57)
[2018-11-28] MEDS: Magnesium Hydroxide LIQ* 30 ML UDC PO SCH (07:57)
--- NOTE | 2018-11-28 08:32 | PN ---
Progress Note - Progress Note Date of Service: 11/28/18 SOAP: Subjective: 58 y/o male s/p L JACQUI 11/[address] Harvey, uncomplicated. VSS, afebrile overnight. Objective: General- Well appearing, NAD, AO MSK- LE- DF/PF = b/l, PT 2+, negative homans sign Vital Signs Temp 99.1 F 11/28/18 07:30 Pulse 83 11/28/18 07:30 Resp 16 11/28/18 07:56 BP 102/59 11/28/18 07:30 Pulse Ox 96 11/28/18 07:30 Intake & Output 11/27/18 11/28/18 11/28/18 18:59 06:59 18:59 Intake Total 3150 2255 Output Total 250 1550 Balance 2900 705 Weight 64.954 kg Intake: IV Fluids 3100 1005 ABX - CEFAZOLIN 55 LR 3000 950 NS 100ML, Cefazolin 2G 100 Oral 50 1250 Output: Guillaume 250 1550 Assessment: Stable 58 y/o male s/p L JACQUI 11/[address] Harvey, uncomplicated. Plan: - DVT prophylaxis- lovenox, coumadin - Continue PT/ OT - Follow up with Dr. Harvey within 10-14 days - H&H - Stable - post-op IV ABX - Running - Likely D/C to home tomorrow. Acetaminophen (Tylenol Tab*) 975 mg PO Q8H [facility] Last Admin: 11/28/18 04:29 Dose: Not Given Amlodipine Besylate (Norvasc Tab*) 10 mg PO QAM [facility] Last Admin: 11/28/18 08:10 Dose: Not Given Apixaban (Eliquis*) 2.5 mg PO BID [facility] Last Admin: 11/28/18 07:56 Dose: 2.5 mg Bisacodyl (Dulcolax Supp*) 10 mg [place] DAILY PRN PRN Reason: constipation Bupropion HCl (Wellbutrin Sr Tab*) 150 mg PO BID [facility] Last Admin: 11/28/18 07:57 Dose: 150 mg Device (Nicotine Mouth Piece*) 1 each INH ONCE PRN PRN Reason: CRAVING Diphenhydramine HCl (Benadryl Iv*) 25 mg IV Q6H PRN PRN Reason: itching Cefazolin Sodium 1 gm/ Sodium (Chloride) 50 mls @ 200 mls/hr IVPB Q8H [facility] Stop: 11/28/18 15:44 Last Admin: 11/28/18 07:56 Dose: 200 mls/hr Lactated Ringer's (Lactated Ringers 1000 Ml Bag*) 1,000 mls @ 100 mls/hr IV PER RATE [facility] Last Admin: 11/28/18 04:57 Dose: 100 mls/hr Lactulose (Lactulose*) 30 ml PO Q6H PRN PRN Reason: constipation Magnesium Hydroxide (Milk Of Magnesia Liq*) 30 ml PO BID [facility] Last Admin: 11/28/18 07:57 Dose: 30 ml Magnesium Hydroxide (Milk Of Magnesia Liq*) 30 ml PO Q6H PRN PRN Reason: constipation Morphine Sulfate (Morphine Inj ((Syringe))*) 2 mg IV Q2H PRN PRN Reason: PAIN Morphine Sulfate (Ms Contin(*)) 15 mg PO Q6H [facility] Last Admin: 11/28/18 05:45 Dose: 15 mg Multivitamins (Theragran Tab*) 1 tab PO DAILY [facility] Last Admin: 11/28/18 07:57 Dose: 1 tab Nicotine (Nicotine Inhaler*) 10 mg INH Q2H PRN PRN Reason: CRAVING Ondansetron HCl (Zofran Inj*) 4 mg IV Q6H PRN PRN Reason: nausea Oxycodone HCl (Roxycodone Tab*) 10 mg PO Q4H PRN PRN Reason: PAIN - MODERATE TO SEVERE Last Admin: 11/27/18 18:05 Dose: 10 mg Oxycodone/Acetaminophen (Percocet 5/325 Tab*) 1 tab PO Q4H PRN PRN Reason: PAIN Oxycodone/Acetaminophen (Percocet 5/325 Tab*) 2 tab PO Q4H PRN PRN Reason: PAIN Last Admin: 11/28/18 07:56 Dose: 2 tab Polyethylene Glycol/Electrolytes (Miralax*) 17 gm PO DAILY PRN PRN Reason: Constipation Trazodone HCl (Desyrel Tab*) 150 mg PO BEDTIME PRN PRN Reason: SLEEP Last Admin: 11/27/18 21:47 Dose: 150 mg
[2018-11-28] MEDS ORDERED: Vitamin THERAPEUTIC TAB PO SCH (09:00)
[2018-11-28] MEDS ORDERED: amLODIPine TAB* 5 MG PO SCH (09:00)
[2018-11-28] MEDS ORDERED: Apixaban* 2.5 MG TAB PO SCH (09:00)
--- NOTE | 2018-11-28 10:29 | OP ---
OPERATIVE NOTE: DATE OF OPERATION: 11/27/18 DATE OF : 64 ATTENDING SURGEON: Patti Harvey MD. TEST ENGINE MECHANIC: JADON Horne Ms. did help throughout the procedure with preparation of the leg, wound retraction, manipul ation of the hip, and wound closure. ANESTHESIOLOGIST: Dr. Medellin. ANESTHESIA: General. PRE-OP DIAGNOSIS: Severe end-stage degenerative osteoarthritis of the left hip joint. POST-OP DIAGNOSIS: Severe end-stage degenerative osteoarthritis of the left hip joint. OPERATIVE PROCEDURE: Left total hip arthroplasty. COMPLICATIONS: None. ESTIMATED BLOOD LOSS: 200 cc. SPECIMENS: Femoral head and acetabulum sent to Pathology. HARDWARE USED: This is Geovanna uncemented total hip arthroplasty hardware. For the cup, a Tritanium cluster hole shell 54E with a single 200-mm screw. For the insert, a polyethylene Trident X3 0-degr ee 36E insert. For the stem, an Accolade 2 size 5 with a 132-degree neck. For the head, a Biolox de lta ceramic V40 femoral head, 36 +2.5. BRIEF HISTORY/INDICATIONS: Mr. Solo is a 58-year-old gentleman with years of increasingly erica re left hip pain. Radiographs showed [id number] arthritis. He failed conservative treatment with antiinflammatories, pain medication, and physical therapy. Due to continued pain and decreased quali ty of life, he elected to undergo left total hip arthroplasty. Informed consent was obtained from th e patient. He understood the risks of surgery included but were not limited to bleeding, infection, damage to nearby structures, continued pain, need for further surgery, intraoperative fracture, nerve palsy, hardware failure or loosening, dislocation, leg length discrepancy, anesthesia complication, stroke, heart attack, blood clot, and . He wished to proceed. INTRAOPERATIVE FINDINGS: Intraoperatively, the patient was noted to have severe end-stage arthritis with significant osteophyte formation and significant loss of cartilage along the femoral head and ac etabulum. DESCRIPTION OF PROCEDURE: Mr. Solo was identified in the preanesthesia unit. His left lower ex tremity was marked as the correct operative side. Informed consent was signed and placed in the jules t. The patient was taken to the operating room and placed under general anesthesia. A Guillaume cathete r was placed. The patient was placed in the right lateral decubitus position on the pegboard and all bony prominences were well padded. Left lower extremity was prepped and draped in the usual sterile fashion. Preop time-out was made to correctly identify the patient's side and site. Appropriate pe rioperative antibiotics were given within 1 hour of incision. A standard posterior hip incision was made with a 10-blade and carried down to the lateral fascial la judith. Lateral fascial layer was incised in line with the skin incision. A Charnley retractor was michelle mahi. The piriformis and conjoint tendons were identified and elevated off the posterolateral femur u sing electrocautery. These were tagged with #5 Ethibond. Next, the electrocautery was used to make a standard posterolateral capsular flap and this was also tagged with #5 Ethibond. The hip was careful ly dislocated. Lesser troch to center of the femoral head measured 70 mm. Oscillating saw was used to make the femo ral neck cut and the femoral head was removed. The femur was retracted anteriorly. After appropriat e placement of retractors, the acetabulum was well visualized. A long-handled knife was used to bhupendra ply remove any remaining labrum from the acetabular rim. The acetabulum was sequentially reamed up t o a size 53. A 53 reamer obtained a bleeding subchondral bone bed. A 53 trial had excellent stabili ty. Final implant chosen was a Tritanium cluster hole shell 54E. This was impacted into the acetabul um without difficulty or complication. The cup was stable with appropriate anteversion and abduction angle. A single screw was placed in the superior-posterior quadrant for extra stability. Insert ch osen was a Trident X3 polyethylene insert 0-degree, size 36E. This was impacted into the acetabulum without difficulty. Stability of the insert was checked and rechecked and noted to be stable. Next, attention was turned to preparation of the femoral canal. A canal finder was used to enter the proximal femur. The femur was sequentially broached up to a size 5. Size 5 broach had excellent fit and stability with appropriate anteversion. A 132 neck trial wit h a 36+0 head trial was chosen. Lesser troch to the center of the femoral head measured 66 mm, there fore a +2.5 head was chosen. Lesser troch to center of femoral head measured 69 mm. The hip was red uced and taken through a range of motion. The hip was stable in all positions. There was good soft tissue tension and appropriate leg lengths. The hip was carefully dislocated. All trials were remov ed. Final implant chosen was an Accolade 2 size 5 with a 132-degree neck angle. This was impacted into t he femoral canal. The stem was stable with appropriate anteversion. Final head chosen was a Biolox delta ceramic V40 femoral head 36+2.5. This was impacted onto the femoral neck. Lesser troch to cent er of the femoral head measurement was 69 mm. The hip was reduced and taken through a range of motio n. The hip was stable in all positions. There was good soft tissue tension and appropriate leg maria g th. The hip was copiously irrigated with sterile saline. Previously tagged capsule and tendons were reapproximated to the posterolateral femur through 2 trochanteric drill holes. The lateral fascial l alejandrina was closed using interrupted #1 Vicryls. The rest of the incision was closed in a layered fashi on using 0 and 2-0 Vicryls. The skin was closed using running 3-0 Monocryl and Dermabond. Sterile A daptic, 4x4s, and paper tape were used to cover the incision. The patient's anesthesia was reversed without difficulty. He was taken to the PACU in stable condition. Intended weightbearing will be we ightbearing as tolerated with posterior hip precautions. Intended DVT prophylaxis will be Eliquis. [id number]/[facility] #: [id number]
[2018-11-28 12:41] VITALS: BP 116/65
--- NOTE | 2018-11-28 13:00 | PN ---
Subjective Date of Service: 11/28/18 Interval History: Pain control good. Patient anxious to go home, states his SO lives nearby and will help him. Objective Active Medications: Acetaminophen (Tylenol Tab*) 975 mg PO Q8H [facility] Last Admin: 11/28/18 10:42 Dose: Not Given Amlodipine Besylate (Norvasc Tab*) 5 mg PO QAM [facility] Apixaban (Eliquis*) 2.5 mg PO BID [facility] Last Admin: 11/28/18 07:56 Dose: 2.5 mg Bisacodyl (Dulcolax Supp*) 10 mg [place] DAILY PRN PRN Reason: constipation Bupropion HCl (Wellbutrin Sr Tab*) 150 mg PO BID [facility] Last Admin: 11/28/18 07:57 Dose: 150 mg Device (Nicotine Mouth Piece*) 1 each INH ONCE PRN PRN Reason: CRAVING Diphenhydramine HCl (Benadryl Iv*) 25 mg IV Q6H PRN PRN Reason: itching Cefazolin Sodium 1 gm/ Sodium (Chloride) 50 mls @ 200 mls/hr IVPB Q8H [facility] Stop: 11/28/18 15:44 Last Admin: 11/28/18 07:56 Dose: 200 mls/hr Lactated Ringer's (Lactated Ringers 1000 Ml Bag*) 1,000 mls @ 100 mls/hr IV PER RATE [facility] Last Admin: 11/28/18 04:57 Dose: 100 mls/hr Lactulose (Lactulose*) 30 ml PO Q6H PRN PRN Reason: constipation Magnesium Hydroxide (Milk Of Magnesia Liq*) 30 ml PO BID [facility] Last Admin: 11/28/18 07:57 Dose: 30 ml Magnesium Hydroxide (Milk Of Magnesia Liq*) 30 ml PO Q6H PRN PRN Reason: constipation Morphine Sulfate (Morphine Inj ((Syringe))*) 2 mg IV Q2H PRN PRN Reason: PAIN Morphine Sulfate (Ms Contin(*)) 15 mg PO Q6H [facility] Last Admin: 11/28/18 12:40 Dose: 15 mg Multivitamins (Theragran Tab*) 1 tab PO DAILY [facility] Last Admin: 11/28/18 07:57 Dose: 1 tab Nicotine (Nicotine Inhaler*) 10 mg INH Q2H PRN PRN Reason: CRAVING Ondansetron HCl (Zofran Inj*) 4 mg IV Q6H PRN PRN Reason: nausea Oxycodone HCl (Roxycodone Tab*) 10 mg PO Q4H PRN PRN Reason: PAIN - MODERATE TO SEVERE Last Admin: 11/27/18 18:05 Dose: 10 mg Oxycodone/Acetaminophen (Percocet 5/325 Tab*) 1 tab PO Q4H PRN PRN Reason: PAIN Oxycodone/Acetaminophen (Percocet 5/325 Tab*) 2 tab PO Q4H PRN PRN Reason: PAIN Last Admin: 11/28/18 12:39 Dose: 2 tab Polyethylene Glycol/Electrolytes (Miralax*) 17 gm PO DAILY PRN PRN Reason: Constipation Trazodone HCl (Desyrel Tab*) 150 mg PO BEDTIME PRN PRN Reason: SLEEP Last Admin: 11/27/18 21:47 Dose: 150 mg Vital Signs - 8 hr 11/28/18 11/28/18 11/28/18 05:45 06:29 07:22 Temperature 99.1 F Pulse Rate 83 Respiratory 16 16 16 Rate Blood Pressure 102/59 (mmHg) O2 Sat by Pulse 96 Oximetry 11/28/18 11/28/18 11/28/18 07:30 07:56 09:55 Temperature 99.1 F Pulse Rate 83 Respiratory 16 16 16 Rate Blood Pressure 102/59 (mmHg) O2 Sat by Pulse 96 Oximetry 11/28/18 11/28/18 11/28/18 11:26 12:39 12:40 Temperature 99.1 F Pulse Rate 92 Respiratory 16 16 16 Rate Blood Pressure 116/65 (mmHg) O2 Sat by Pulse 100 Oximetry Oxygen Devices in Use Now: None Appearance: Alert, in a chair. In good spirits. Looks comfortable. Neurological: Alert and Oriented x 3 - Some memory impairment. No tremor. , NL Sensation Result Diagrams: 11/28/18 05:33 11/28/18 05:33 Assess/Plan/Problems-Billing Assessment: - Patient Problems (1) HTN (hypertension) Current Visit: Yes Status: Acute Code(s): I10 - ESSENTIAL (PRIMARY) HYPERTENSION SNOMED Code(s): 87846781 Comment: BP on low side her, would decrease amlodipine to 5 mg daily. (2) Chronic pain Current Visit: Yes Status: Acute Code(s): G89.29 - OTHER CHRONIC PAIN SNOMED Code(s): 18819551 Comment: Resume usual pain meds at home. He seems to be doing well with post -op pain. (3) Depression (emotion) Current Visit: Yes Status: Acute Code(s): F32.9 - MAJOR DEPRESSIVE DISORDER , SINGLE EPISODE, UNSPECIFIED SNOMED Code(s): 09029129 Comment: Continue trazamartell, fup with Dr. Gunter.
[2018-11-28] MEDS: oxyCODONE TAB* 5 MG TAB PO PRN (15:01)
[2018-11-29] MEDS ORDERED: amLODIPine TAB* 5 MG PO SCH (09:00)
--- NOTE | 2018-12-05 13:02 | DS ---
DISCHARGE SUMMARY: DATE OF ADMISSION: 11/27/18 DATE OF DISCHARGE: 11/28/18 CHIEF COMPLAINT: 1. Left hip pain. 2. Hypertension. 3. Hepatitis C. 4. Depression. 5. Anxiety. 6. History of cocaine and alcohol addiction. DISCHARGE DIAGNOSES: 1. Status post left total hip arthroplasty. 2. Hypertension. 3. Hepatitis C. 4. Depression. 5. Anxiety. 6. History of cocaine and alcohol addiction. HISTORY OF PRESENT ILLNESS: Mr. Solo is a 58-year-old gentleman with longstanding history of l eft hip pain with severe end-stage arthritis who failed conservative treatment and elected to proceed with a total left hip arthroplasty by Dr. Patti Harvey. HOSPITAL COURSE: The patient was admitted to [facility] on 11/27/18 where he underwent a left total hip arthroplasty, which was uncomplicated with an estimated blood loss of 200 cc. The pat ient recovered on the surgical short stay unit. His vital signs remained stable. His Guillaume was fco hira and he was voiding on his own without difficulty. His pain was controlled with p.o. pain medicat ions on top of his standard dose of narcotic medication. He was working well with physical therapy a nd deemed appropriate for discharge to home. PHYSICAL EXAMINATION: General: Well appearing, in no acute distress, alert and oriented, resting co mfortably. Left lower extremity with equal dorsiflexion and plantarflexion bilaterally with posterio r pulses 2+. Negative Homans sign. Dressing intact with no signs of drainage or erythema or indurati on around the dressing on the left hip. Vital Signs: Temperature 99.1, pulse 83, respirations 16, b lood pressure 102/59, pulse oxygenation 96% on room air. LABORATORY DATA ON DATE OF DISCHARGE: H and H of 10.1 and 29. DISCHARGE MEDICATIONS: 1. Aspirin 325 mg p.o. b.i.d. 2. Bupropion 150 mg p.o. b.i.d. 3. Norvasc 10 mg p.o. q.a.m. 4. Hooks 10/325 one tablet every 4 hours as needed for pain. 5. Morphine sulfate extended release 20 mg p.o. b.i.d. 6. Daily multivitamin. 7. Naproxen 500 mg p.o. b.i.d. 8. Oxycodone 10 mg p.o. t.i.d. 9. Trazodone 150 mg p.o. at bedtime. CONDITION ON DISCHARGE: Good. DISCHARGE INSTRUCTIONS: The patient will follow up with Dr. Harvey in approximately 10 to 14 days for incision check and suture removal. He is to take aspirin 325 mg p.o. b.i.d. for DVT prophylaxis. H e will take Hooks 10 mg/325 mg tablets every 4 to 6 hours as needed for pain on top of his baseline n arcotic pain regimen. He will call the office with any questions or concerns and will go to the [facility] room with any shortness of breath or chest pain. JADON GARCIA [id number]/[facility] #: [id number]
== END 2018-11-28 16:00 | disposition home health service (06) | DRG 301 ==
LOC: AA 11-27 10:54 → SSU 11-27 18:19
PROVIDERS: ADMIT Orthopaedic Surgery Adult Reconstructive Orthopaedic Surgery; ATTEND Orthopaedic Surgery Adult Reconstructive Orthopaedic Surgery
PROC: 0SRB04A Replacement of Left Hip Joint with Ceramic on Polyethylene Synthetic Substitute, Uncemented, Open Approach (ICD-10-PCS; principal; 2018-11-27 14:00)
DX: M16.12 Unilateral primary osteoarthritis, left hip (principal); F33.9 Major depressive disorder, recurrent, unspecified; I10 Essential (primary) hypertension; F41.9 Anxiety disorder, unspecified; F17.210 Nicotine dependence, cigarettes, uncomplicated; J44.9 Chronic obstructive pulmonary disease, unspecified; I73.9 Peripheral vascular disease, unspecified; N52.9 Male erectile dysfunction, unspecified; M25.772 Osteophyte, left ankle; G89.29 Other chronic pain; F11.90 Opioid use, unspecified, uncomplicated; E78.2 Mixed hyperlipidemia; B18.2 Chronic viral hepatitis C; H90.6 Mixed conductive and sensorineural hearing loss, bilateral; E55.9 Vitamin D deficiency, unspecified; E05.90 Thyrotoxicosis, unspecified without thyrotoxic crisis or storm; M51.37 Other intervertebral disc degeneration, lumbosacral region; I73.00 Raynaud's syndrome without gangrene; H53.30 Unspecified disorder of binocular vision; E53.9 Vitamin B deficiency, unspecified; I83.811 Varicose veins of right lower extremity with pain; K40.90 Unilateral inguinal hernia, without obstruction or gangrene, not specified as recurrent; Z81.1 Family history of alcohol abuse and dependence; Z72.89 Other problems related to lifestyle; Z90.89 Acquired absence of other organs
CPT/HCPCS: 36415; 80048; 85014; 85018; 85049; 88304; 88311; A9270-GY; C1713; C1776; J0690; J1100; J1170; J1885; J2250; J2405; J2704; J2795; J3010